=== PATIENT | female | born 1975 | race Caucasian/White ===

== ENCOUNTER 2018-04-10 11:02 | Emergency (ER) | payer OTHER ==
[2018-04-10] MEDS ORDERED: DICYCLOMINE HCL 10 MG CAP ONE (11:39)
[2018-04-10] MEDS ORDERED: ONDANSETRON 4 MG/2 ML VIAL ONE (11:40)
[2018-04-10] MEDS ORDERED: MORPHINE 4 MG/ML SYR ONE (11:40)
[2018-04-10] MEDS ORDERED: NA CHLORIDE 0.9% 1,000 ML ONE (11:41)
[2018-04-10 12:19] LABS: Urine Blood 2+ (NEG); Urine Glucose NEGATIVE (NEG); Urine Protein 1+ (NEG); Urine Specific Gravity 1.025 (1.005-1.030); Urine pH 5.5 (5.0-7.0)
[2018-04-10 12:30] LABS: Absolute Lymphocytes (CBC) 0.4 K/uL (0.7-4.9); Absolute Monocytes 1.3 K/uL (0.1-1.3); Absolute Neutrophil 11.1 K/uL (1.8-8.0); Basophils % 0.2 % (0-1.3); Eosinophils % 1.9 % (0-4.4); Hematocrit 43.5 % (36.0-45.0); Lymphocytes % 3.1 % (15.3-44.8); MCH 30.7 pg (27.0-35.0); MCV 90.3 fL (80-100); MPV 10.2 fL (7.6-11.3); RBC Red Blood Cell Count 4.82 M/uL (3.86-4.86)
[2018-04-10 12:31] LABS: ALT/SGPT 203 U/L (12-78); AST/SGOT 189 U/L (15-37); Albumin 3.8 g/dL (3.4-5.0); Alkaline Phosphatase 83 U/L (45-117); BUN Blood Urea Nitrogen 10 mg/dL (7-18); Bicarbonate 24 mmol/L (21-32); Bilirubin Direct 0.2 mg/dL (0-0.2); Bilirubin Total 0.5 mg/dL (0.2-1.0); Glucose Level 88 mg/dL (74-106); Lipase 92 U/L (73-393); Potassium 4.6 mmol/L (3.5-5.1); Sodium Level 139 mmol/L (136-145)
[2018-04-10 13:06] LABS: Platelet Estimate ADEQ; Urine White Blood Cell Casts OK
[2018-04-10 13:07] LABS: Blood Morphology Comment NOT SEEN (NOT SEEN)
--- NOTE | 2018-04-10 13:19 | RAD REPORT ---
EXAM DESCRIPTION: CT - Abdomen Pelvis W Contrast - 04/10/2018 12:51 pm CLINICAL HISTORY: Abdominal pain, nausea and vomiting COMPARISON: None. TECHNIQUE: Biphasic, helical CT imaging of the abdomen and pelvis was performed following 100 ml non -ionic IV contrast. Oral contrast was given. All CT scans are performed using dose optimization technique as appropriate and may include automated exposure control or mA/KV adjustment according to patient size. FINDINGS: No suspicious findings in the lung bases. The liver, spleen, and pancreas show no suspicious findings. Gallbladder and biliary tree are also wi thout suspicious finding. Symmetric renal function is seen with no hydronephrosis or suspicious renal mass. No urinary bladder abnormality seen. Retroflexed uterus in both ovaries are unremarkable. No dilated bowel loops. No bowel wall thickening. Fluid-filled nondilated distal small bowel loops ar e present and there is fluid in the right-side of the colon. No appendicitis findings. No free air, free fluid or inflammatory stranding. No hernia, mass or bulky lymphadenopathy. No adrenal abnormali ty. No suspicious bony findings. IMPRESSION: No obstruction, free air or surgically emergent finding. Distal small bowel and right side colon findings could indicate a nonspecific enteritis.
[2018-04-10] MEDS ORDERED: KETOROLAC 30 MG/ML INJ ONE (14:25)
--- NOTE | 2018-04-10 14:55 | EDPHYS ---
Physician Documentation [facility] Name: Rosamaria Castillo Age: 42 yrs Sex: Female : 1975 Arrival Date: 04/10/2018 Time: 11:06 Bed 15 Private MD: Minor Multani B ED Physician Yaw Lopez HPI: 04/10 11:30 This 42 yrs old Female presents to ER via Ambulatory with complaints of jmm Diarrhea, Abdominal Cramping. 11:30 The patient presents to the emergency department with nausea, diarrhea, abdominal pain. jmm Onset: The symptoms/episode began/occurred acutely, 2 day(s) ago. Possible causes: sick contacts, by family, daughter. The symptoms are aggravated by food , The symptoms are alleviated by nothing. Associated signs and symptoms: Pertinent positives: abdominal pain, diarrhea, fever. This is a 42 year old female with a history of bechects that presents to the ED with lower abdominal pain and diarrhea beginning this past . Patient states her daughter has had similar symptoms. Stool is described as watery. Patient has had 8 episodes of diarrhea today. Denies vomiting. Patient denies recent abx use, denies recent travel. Patient complains of body aches. . 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 aj Historical: - Allergies: 11:14 No Known Allergies; aj - Home Meds: 11:14 Adderall XR 20 mg Oral cp24 1 cap BID [Active]; Enbrel 20MG 1 tab three times a day aj [Active]; Flonase 50 mcg/actuation Nasal spsn 1 spray 2 times per day [Active]; Lamictal 200 mg Oral tab 1 tab 2 times per day [Active]; Plaquenil 200 mg Oral tab 1 tab 2 times per day [Active]; Seasonique 0.15 mg-30 mcg (84)/10 mcg (7) Oral 3MPk 1 tab once daily [Active]; Clonidine Oral [Active]; - PMHx: 11:14 Bechects; narcolepsy; aj - PSHx: 11:14 Endometriosis; Knee surgery; Ankle; aj - Immunization history:: Adult Immunizations up to date. - Social history:: Smoking status: Patient/guardian denies using tobacco. - Ebola Screening: : Patient negative for fever greater than or equal to 101.5 degrees Fahrenheit, and additional compatible Ebola Virus Disease symptoms Patient denies exposure to infectious person Patient denies travel to an Ebola-affected area in the 21 days before illness onset No symptoms or risks identified at this time. ROS: 11:30 Cardiovascular: Negative for chest pain, palpitations, and edema, Respiratory: Negative jmm for shortness of breath, cough, wheezing, and pleuritic chest pain. 11:30 Back: Negative for injury and pain, MS/Extremity: Negative for injury and deformity, Skin: Negative for injury, rash, and discoloration. 11:30 Constitutional: Positive for body aches. 11:30 Abdomen/GI: Positive for abdominal pain, nausea, diarrhea. 11:30 Neuro: Positive for 11:30 All other systems are negative. Exam: 11:30 Head/Face: atraumatic. Chest/axilla: Normal chest wall appearance and motion. jmm Cardiovascular: Regular rate and rhythm. No edema appreciated Respiratory: Normal respirations, no respiratory distress appreciated 11:30 Constitutional: The patient appears alert, awake, anxious, uncomfortable. 11:30 Abdomen/GI: Inspection: abdomen appears normal, Bowel sounds: normal, Palpation: soft, mild abdominal tenderness, in the right lower quadrant and left lower quadrant. 11:30 Back: ROM is normal. 11:30 Musculoskeletal/extremity: ROM: intact in all extremities. 11:30 Skin: Appearance: Color: normal in color. 11:30 Neuro: Orientation: is normal, Mentation: is normal, Memory: is normal, Gait: is steady. 11:30 Psych: Behavior/mood is pleasant, cooperative. Vital Signs: 11:14 BP 112 / 53; Pulse 102; Resp 19; Temp 98.4; Pulse Ox 100% on R/A; Weight 72.57 kg; aj Height 5 ft. 5 in. (165.10 cm); 11:45 BP 128 / 80; Pulse 99; Resp 16 S; Pulse Ox 98% on R/A; Pain 10/10; jl7 12:30 BP 118 / 77; Pulse 93; Resp 16 S; Pulse Ox 98% on R/A; jl7 13:15 BP 116 / 74; Pulse 89; Resp 16 S; Pulse Ox 98% on R/A; jl7 14:26 BP 113 / 75; Pulse 87; Resp 16 S; Pulse Ox 99% on R/A; jl7 11:14 Body Mass Index 26.63 (72.57 kg, 165.10 cm) aj MDM: 11:28 Patient medically screened. [facility] 14:53 Data reviewed: vital signs, nurses notes. Counseling: I had a detailed discussion with savita the patient and/or guardian regarding: the historical points, exam findings, and any diagnostic results supporting the discharge/admit diagnosis, radiology results, the need for outpatient follow up, to return to the emergency department if symptoms worsen or persist or if there are any questions or concerns that arise at home. Response to treatment: the patient's symptoms have markedly improved after treatment. ED course: Patient is alert and non toxic in appearance in the ED on discharge. Patient is able to tolerate PO. Patient given strict return precautions. Patient understood and agrees with the plan of care. . 04/10 11:29 Order name: Basic Metabolic Panel; Complete Time: 12:34 [facility] 04/10 11:29 Order name: CBC with Diff; Complete Time: 13:09 [facility] 04/10 11:29 Order name: Creatinine for Radiology; Complete Time: 12:34 [facility] 04/10 11:29 Order name: Hepatic Function; Complete Time: 12:34 [facility] 04/10 11:29 Order name: Lipase; Complete Time: 12:34 [facility] 04/10 12:05 Order name: Urine Dipstick--Ancillary (enter results); Complete Time: 12:34 04/10 11:29 Order name: CT Abd/Pelvis - W/Contrast; Complete Time: 13:32 [facility] 04/10 12:05 Order name: Urine --Ancillary (enter results); Complete Time: 12:34 04/10 12:37 Order name: CBC Smear Scan; Complete Time: 13:09 [facility] 04/10 11:29 Order name: IV Saline Lock; Complete Time: 12:17 [facility] 04/10 11:29 Order name: Labs collected and sent; Complete Time: 12:17 [facility] 04/10 14:07 Order name: PO challenge; Complete Time: 14:25 [facility] Administered Medications: 12:00 Drug: morphine 4 mg Route: IVP; Site: right antecubital; jl7 13:00 Follow up: Response: No adverse reaction; Pain is decreased [facility] 12:01 Drug: Zofran 4 mg Route: IVP; Site: right antecubital; jl7 13:00 Follow up: Response: No adverse reaction; Nausea is decreased jl7 12:03 Drug: NS 0.9% 1000 ml Route: IV; Rate: 1 bolus; Site: right antecubital; jl7 13:20 Follow up: IV Status: Completed infusion jl7 12:17 Drug: Bentyl 20 mg Route: PO; jl7 13:00 Follow up: Response: No adverse reaction; Pain is decreased jl7 14:24 Drug: Ketorolac 30 mg Route: IVP; Site: right antecubital; jl7 Disposition: 17:34 Co-signature as Attending Physician, Yaw Lopez MD. Disposition: 04/10/18 14:54 Discharged to Home. Impression: Other abdominal pain, Diarrhea, unspecified. - Condition is Stable. - Discharge Instructions: Abdominal Pain, Adult, Food Choices to Help Relieve Diarrhea, Adult. - Prescriptions for Zofran ODT 4 mg Oral tablet,disintegrating - place 1 tablet by TRANSLINGUAL route every 4-6 hours; 20 tablet. Bentyl 20 mg Oral Tablet - take 1 tablet by ORAL route every 6 hours As needed; 20 tablet. Tylenol- Codeine #3 300-30 mg Oral Tablet - take 1 tablet by ORAL route every 6 hours As needed; 12 tablet. - Medication Reconciliation Form, Thank You Letter, Antibiotic Education, Prescription Opioid Use form. - Follow up: Minor Multani MD; When: 2 - 3 days; Reason: Recheck today's complaints, Continuance of care, Re-evaluation by your physician. - Notes: You liver enzymes are elevated, please follow up with Gastroenterology for further evaluation. Please return to the Emergency Department if you are unable to tolerate fluids by mouth or if you develop increased pain. Signatures: Dispatcher [employer] EDMS Quiana Sterling RN RN aj Mickail, Joel, PA PA jmm Leal, Jahala, RN RN jl7 Starr, Gregory, MD MD Corrections: (The following items were deleted from the chart) 15:17 14:54 04/10/2018 14:54 Discharged to Home. Impression: Other abdominal pain; Diarrhea, jl7 unspecified. Condition is Stable. Forms are Medication Reconciliation Form, Thank You Letter, Antibiotic Education, Prescription Opioid Use. Follow up: Minor Multani; When: 2 - 3 days; Reason: Recheck today's complaints, Continuance of care, Re-evaluation by your physician. savita
--- NOTE | 2018-04-10 14:55 | ER ---
Nurse's Notes [facility] Name: Rosamaria Castillo Age: 42 yrs Sex: Female : 1975 Arrival Date: 04/10/2018 Time: 11:06 Bed 15 Private MD: Minor Multani B Diagnosis: Other abdominal pain;Diarrhea, unspecified Presentation: 04/10 11:11 Presenting complaint: Patient states: N/V/D since night. Transition of care: aj patient was not received from another setting of care. Onset of symptoms was April 06, 2018. Risk Assessment: Do you want to hurt yourself or someone else? Patient reports no desire to harm self or others. Initial Sepsis Screen: Does the patient meet any 2 criteria? No. Patient's initial sepsis screen is negative. Does the patient have a suspected source of infection? No. Patient's initial sepsis screen is negative. Care prior to arrival: None. 11:11 Method Of Arrival: Ambulatory 11:11 Acuity: TRAV 3 Triage Assessment: 11:14 General: Appears in no apparent distress. uncomfortable, Behavior is calm, cooperative, aj appropriate for age. Pain: Denies pain. Neuro: Level of Consciousness is awake, alert, obeys commands, Oriented to person, place, time, situation, Appropriate for age. Respiratory: Airway is patent Trachea midline Respiratory effort is even, unlabored, Respiratory pattern is regular, symmetrical. GI: Abdomen is flat, Reports lower abdominal pain, upper abdominal pain, diarrhea, nausea, vomiting. Derm: Skin is intact, is healthy with good turgor, Skin is pink, warm \\T\\ dry. normal. 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 Historical: - Allergies: 11:14 No Known Allergies; aj - Home Meds: 11:14 Adderall XR 20 mg Oral cp24 1 cap BID [Active]; Enbrel 20MG 1 tab three times a day aj [Active]; Flonase 50 mcg/actuation Nasal spsn 1 spray 2 times per day [Active]; Lamictal 200 mg Oral tab 1 tab 2 times per day [Active]; Plaquenil 200 mg Oral tab 1 tab 2 times per day [Active]; Seasonique 0.15 mg-30 mcg (84)/10 mcg (7) Oral 3MPk 1 tab once daily [Active]; Clonidine Oral [Active]; - PMHx: 11:14 Bechects; narcolepsy; aj - PSHx: 11:14 Endometriosis; Knee surgery; Ankle; aj - Immunization history:: Adult Immunizations up to date. - Social history:: Smoking status: Patient/guardian denies using tobacco. - Ebola Screening: : Patient negative for fever greater than or equal to 101.5 degrees Fahrenheit, and additional compatible Ebola Virus Disease symptoms Patient denies exposure to infectious person Patient denies travel to an Ebola-affected area in the 21 days before illness onset No symptoms or risks identified at this time. Screenin:00 Abuse screen: Denies threats or abuse. Denies injuries from another. Nutritional jl7 screening: No deficits noted. Tuberculosis screening: No symptoms or risk factors identified. Fall Risk IV access (20 points). Assessment: 11:45 General: Appears in no apparent distress. uncomfortable, Behavior is calm, cooperative. jl7 Pain: Complains of pain in right upper quadrant, left upper quadrant, right lower quadrant and left lower quadrant Pain does not radiate. Pain currently is 10 out of 10 on a pain scale. Quality of pain is described as aching, crampy, Is continuous. Neuro: Level of Consciousness is awake, alert, obeys commands, Oriented to person, place, time, situation. Cardiovascular: Patient's skin is warm and dry. Respiratory: Airway is patent Respiratory effort is even, unlabored, Respiratory pattern is regular, symmetrical. GI: Abdomen is flat, non-distended, Stools are reported to be diarrhea. : No signs and/or symptoms were reported regarding the genitourinary system. Denies burning with urination. Derm: Skin is pink, warm \\T\\ dry. Musculoskeletal: No signs and/or symptoms reported regarding the musculoskeletal system. 12:45 Reassessment: Patient and/or family updated on plan of care and expected duration. Pain jl7 level reassessed. Patient is alert, oriented x 3, equal unlabored respirations, skin warm/dry/pink. Patient states symptoms have improved. 13:45 Reassessment: Patient appears in no apparent distress at this time. No changes from jl7 previously documented assessment. Patient and/or family updated on plan of care and expected duration. Pain level reassessed. Patient is alert, oriented x 3, equal unlabored respirations, skin warm/dry/pink. 14:20 Reassessment: pt reports pain in the neck, states "I think I pulled it while stretching jl7 yesterday." Provider notified, see MAR for orders. 14:52 Reassessment: Pt drank grape juice, water and sprite. Denies discomfort at this time, jl7 provider notified. Vital Signs: 11:14 BP 112 / 53; Pulse 102; Resp 19; Temp 98.4; Pulse Ox 100% on R/A; Weight 72.57 kg; aj Height 5 ft. 5 in. (165.10 cm); 11:45 BP 128 / 80; Pulse 99; Resp 16 S; Pulse Ox 98% on R/A; Pain 10/10; jl7 12:30 BP 118 / 77; Pulse 93; Resp 16 S; Pulse Ox 98% on R/A; jl7 13:15 BP 116 / 74; Pulse 89; Resp 16 S; Pulse Ox 98% on R/A; jl7 14:26 BP 113 / 75; Pulse 87; Resp 16 S; Pulse Ox 99% on R/A; jl7 11:14 Body Mass Index 26.63 (72.57 kg, 165.10 cm) ED Course: 11:06 Patient arrived in ED. mr 11:07 Minor Multani MD is Private Physician. mr 11:12 Triage completed. aj 11:14 Arm band placed on right wrist. Patient placed in an exam room. aj 11:15 Srinivas Diehl PA is PHCP. m 11:15 Yaw Lopez MD is Attending Physician. [facility] 11:29 Malika Cook, LLUVIA is Primary Nurse. jl7 12:03 Radiology exam delayed due to lab results not completed at this time. (BUN/Creatinine). kw1 12:27 Urine collected: clean catch specimen, cloudy. mh5 12:28 Patient has correct armband on for positive identification. Bed in low position. Call 5 light in reach. Side rails up X 1. Warm blanket given. Pulse ox on. NIBP on. 12:30 Missed attempt(s): 22 gauge in left antecubital area. jl7 12:50 CT Abd/Pelvis - W/Contrast In Process Unspecified. EDMS 12:51 Inserted saline lock: 22 gauge in right antecubital area, using aseptic technique. la1 Blood collected. 13:04 CT completed. Patient tolerated procedure well. Patient moved back from CT. vr 14:54 Minor Multani MD is Referral Physician. [facility] 15:17 No provider procedures requiring assistance completed. IV discontinued, intact, jl7 bleeding controlled, No redness/swelling at site. Pressure dressing applied. Administered Medications: 12:00 Drug: morphine 4 mg Route: IVP; Site: right antecubital; jl7 13:00 Follow up: Response: No adverse reaction; Pain is decreased jl7 12:01 Drug: Zofran 4 mg Route: IVP; Site: right antecubital; jl7 13:00 Follow up: Response: No adverse reaction; Nausea is decreased jl7 12:03 Drug: NS 0.9% 1000 ml Route: IV; Rate: 1 bolus; Site: right antecubital; jl7 13:20 Follow up: IV Status: Completed infusion jl7 12:17 Drug: Bentyl 20 mg Route: PO; jl7 13:00 Follow up: Response: No adverse reaction; Pain is decreased jl7 14:24 Drug: Ketorolac 30 mg Route: IVP; Site: right antecubital; jl7 Outcome: 14:54 Discharge ordered by MD. [facility] 15:17 Discharged to home ambulatory, with family. [facility] 15:17 Condition: stable 15:17 Discharge instructions given to patient, family, Instructed on discharge instructions, follow up and referral plans. medication usage, Demonstrated understanding of instructions, follow-up care, medications, Prescriptions given X 3. 15:17 Patient left the ED. jl7 Signatures: Dispatcher [employer] EDMS Quiana Sterling RN RN aj Mickail, Joel, PA PA jmm Rivera, Maria mr Moore Rancho Fabian RN RN la1 Martinez, Maria mh5 Leal, Jahala, RN RN jl7 Wilhelm, Kimberly kw1
== END 2018-04-10 15:17 | disposition home or self-care (01) ==
LOC: ER 11:02
DX: R19.7 Diarrhea, unspecified (principal)
CPT/HCPCS: 36415; 74177; 80048; 80076; 81003; 81025; 83690; 85025; 96361; 96374; 96375; 99284; J2405; J7030; Q9967

== ENCOUNTER 2019-07-01 14:33 | Emergency (ER) | payer OTHER ==
--- OUTSIDE RECORDS SUMMARY | 2019-07-01 14:35 | XMS REPORT ---
:1975 Author Organization [facility] Address [address] [place] [address] Care Team Providers Name Role Phone Unavailable Unavailable Unavailable Payers Payer Name Policy Type Policy Number Effective Date Expiration Date Problems This patient has no known problems. Allergies, Adverse Reactions, Alerts Allergy Allergy Status Severity Reaction(s) Onset Inactive Treating Comments Name Type Date Date Clinician No Known DA Active U 2016-08 Allergies 28 00:00:0 0 Medications This patient has no known medications. Results Test Description Test Time Test Comments Text Results Atomic Results Result Comments - US PELVIS COMPLETE 2019-03-22 16:28:00 Patient Name: AUDRA ORDONEZ Unit No: [id number] EXAMS: CPT CODE: [id number] US PELVIS COMPLETE 24721 CLINICAL HISTORY: Dysfunctional uterine bleeding. Real-time ultrasound examination of the pelvis was performed using transabdominal and endovaginal approach. The uterus measures 8.1 x 3.9 x 4.7 cm in greatest dimensions with endometrium measuring 8 mm in AP dimension. There is no evidence of uterine fibroid or other significant uterine abnormality. The right ovary measures 24 x 22 x 28 mm and appears normal. The left ovary measures 28 x 16 x 22 mm and has normal sonographic appearance. Blood flow is identified in both ovaries. No extraovarian mass is noted. There is no significant free fluid in the pelvis. IMPRESSION: Unremarkable pelvic sonogram. at 8589 Reported and signed by: Bhaskar Richard MD CC: Mahesh Choudhury III, MD Technologist: Santi Stanton RDMS Probe: Trnscrbd D/ (1628) bobARUNA Orig Print D/T: S: 03/22/2019 (5501) [facility] NAME: AUDRA ORDONEZ Radiology Department PHYS: Mahesh Harden III, MD [address] : 1975 AGE: 43 SEX: F [place], [place] [address] LOC: [facility] PHONE #: [phone] EXAM DATE: 03/22/2019 STATUS: REG CLI FAX #: [phone] RAD NO: [id number] Page 1 Signed Report Patient Name: AUDRA ORDONEZ Unit No: [id number] EXAMS: CPT CODE: [id number] US PELVIS COMPLETE 71049 <Continued> [facility] NAME: AUDRA ORDONEZ Radiology Department PHYS: Mahesh Harden III, MD [address] : 1975 AGE: 43 SEX: F [place], [place] [address] LOC: [facility] PHONE #: [phone] EXAM DATE: 03/22/2019 STATUS: REG CLI FAX #: [phone] RAD NO: [id number] Page 2 Signed Report - US TRANSVAGINAL W/PELVIS 2019-03-22 16:28:00 Patient Name: AUDRA ORDONEZ Unit No: [id number] EXAMS: CPT CODE: [id number] US TRANSVAGINAL W/PELVIS 34881 CLINICAL HISTORY: Dysfunctional uterine bleeding. Real-time ultrasound examination of the pelvis was performed using transabdominal and endovaginal approach. The uterus measures 8.1 x 3.9 x 4.7 cm in greatest dimensions with endometrium measuring 8 mm in AP dimension. There is no evidence of uterine fibroid or other significant uterine abnormality. The right ovary measures 24 x 22 x 28 mm and appears normal. The left ovary measures 28 x 16 x 22 mm and has normal sonographic appearance. Blood flow is identified in both ovaries. No extraovarian mass is noted. There is no significant free fluid in the pelvis. IMPRESSION: Unremarkable pelvic sonogram. at 1628 Reported and signed by: Bhaskar Richard MD CC: Mahesh Choudhury III, MD Technologist: Santi Stanton, SORAYAMI Probe: [id number] Trnscrbd D/ (9718) [place] Orig Print D/T: S: 03/22/2019 (2081) [facility] NAME: AUDRA ORDONEZ Radiology Department PHYS: Mahesh Harden III, MD [address] : 1975 AGE: 43 SEX: F [place] [address] LOC: [facility] PHONE #: [phone] EXAM DATE: 03/22/2019 STATUS: REG CLI FAX #: [phone] RAD NO: [id number] Page 1 Signed Report Patient Name: AUDRA ORDONEZ Unit No: [id number] EXAMS: CPT CODE: [id number] US TRANSVAGINAL W/PELVIS 20320 <Continued> [facility] NAME: AUDRA ORDONEZ Radiology Department PHYS: Mahesh Harden III, MD [address] : 1975 AGE: 43 SEX: F [place] [address] LOC: [facility] PHONE #: [phone] EXAM DATE: 03/22/2019 STATUS: REG CLI FAX #: [phone] RAD NO: [id number] Page 2 Signed Report
[2019-07-01] MEDS ORDERED: NA CHLORIDE 0.9% 2,000 ML ONE (15:17)
[2019-07-01 15:38] LABS: Absolute Lymphocytes (CBC) 0.6 K/uL (0.7-4.9); Basophils % 0.2 % (0-1.3); Hematocrit 40.4 % (36.0-45.0); Lymphocytes % 4.2 % (15.3-44.8); MPV 9.3 fL (7.6-11.3); RBC Red Blood Cell Count 4.44 M/uL (3.86-4.86)
[2019-07-01] MEDS ORDERED: CEFTRIAXONE/SWI 1gm 1 GM/10 ML SYR ONE (16:12)
[2019-07-01 16:14] LABS: Urine Bacteria <20 /HPF (<20); Urine Culture Reflex Order NOT NEEDED; Urine Mucus 2+ /HPF (NONE SEEN)
--- NOTE | 2019-07-01 16:14 | RAD REPORT ---
EXAM DESCRIPTION: Dieudonne Single View07/01/2019 3:16 pm CLINICAL HISTORY: fever COMPARISON: 2007 FINDINGS: The lungs appear clear of acute infiltrate. The heart is normal size. 3.8 centimeter calcification proximal right humerus IMPRESSION: 3.8 centimeter calcification proximal right humerus may represent an enchondroma or inf arct. Followup x-ray right humerus recommended in 2 months to assess stability
[2019-07-01 16:15] LABS: Urine Blood 2+ (NEG); Urine Glucose NEGATIVE (NEG); Urine Protein 2+ (NEG); Urine pH 5.5 (5.0-7.0)
[2019-07-01 16:16] LABS: ALT/SGPT 27 U/L (12-78); AST/SGOT 16 U/L (15-37); Albumin 3.5 g/dL (3.4-5.0); Alkaline Phosphatase 98 U/L (45-117); BUN Blood Urea Nitrogen 7 mg/dL (7-18); Bicarbonate 25 mmol/L (21-32); Bilirubin Direct 0.2 mg/dL (0-0.2); Bilirubin Total 0.7 mg/dL (0.2-1.0); CKMB Creatine Kinase MB < 1.0 ng/mL (0.3-3.6); Creatine Phosphokinase 50 U/L (26-192); Glucose Level 102 mg/dL (74-106); Potassium 3.7 mmol/L (3.5-5.1); Protein, Total 7.3 g/dL (6.4-8.2); Sodium Level 135 mmol/L (136-145)
--- NOTE | 2019-07-01 16:20 | ER ---
Nurse's Notes [facility] Name: Rosamaria Castillo Age: 44 yrs Sex: Female : 1975 Arrival Date: 07/01/2019 Time: 14:35 Bed 16 Private MD: Diagnosis: Fever presenting with conditions classified elsewhere;Volume depletion Presentation: 07/01 14:35 Transition of care: patient was not received from another setting of care. sv 14:35 Method Of Arrival: Ambulatory sv 14:36 Presenting complaint: Patient states: fever Tmax 103.7, body aches, headache started sv Wed night, went to see her PCP and was told she has a UTI and flu negative. Onset of symptoms was June 29, 2019. Care prior to arrival: Medication(s) given: Tylenol, taken 2 hrs ago. 14:36 Acuity: TRAV 2 sv 14:39 Initial Sepsis Screen: Does the patient meet any 2 criteria? HR > 90 bpm. No. Patient's sv initial sepsis screen is negative. Does the patient have a suspected source of infection? Yes: Dysuria/Frequency/Urgency/UTI. 17:28 Risk Assessment: Do you want to hurt yourself or someone else? Patient reports no tr5 desire to harm self or others. Historical: - Allergies: 14:36 No Known Allergies; sv - PMHx: 14:36 Bechects; narcolepsy; sv - PSHx: 14:36 Endometriosis; Knee surgery; Ankle; sv - Immunization history:: Adult Immunizations up to date. - Social history:: Smoking status: Patient/guardian denies using tobacco. - Ebola Screening: : No symptoms or risks identified at this time. Screenin:45 Abuse screen: Denies threats or abuse. Denies injuries from another. Nutritional ca1 screening: No deficits noted. Tuberculosis screening: No symptoms or risk factors identified. Fall Risk IV access (20 points). Assessment: 14:45 General: Appears in no apparent distress. comfortable, Behavior is calm, cooperative, ca1 appropriate for age. General: Reports fever for 2-3 days. Pain: Complains of pain in suprapubic area Pain currently is 5 out of 10 on a pain scale. Pain began 2-3 days ago. Neuro: Level of Consciousness is awake, alert, obeys commands, Oriented to person, place, time, situation, Appropriate for age. Cardiovascular: Heart tones S1 S2 present Capillary refill < 3 seconds Patient's skin is warm and dry. Respiratory: Airway is patent Respiratory effort is even, unlabored, Respiratory pattern is regular, symmetrical, Breath sounds are clear bilaterally. GI: Abdomen is flat, non-distended, Bowel sounds present X 4 quads. Abd is soft and non tender X 4 quads. : Reports urinary frequency. EENT: No deficits noted. No signs and/or symptoms were reported regarding the EENT system. Derm: Skin is intact, is healthy with good turgor, Skin is pink, warm \T\ dry. Musculoskeletal: Circulation, motion, and sensation intact. Capillary refill < 3 seconds, Range of motion: intact in all extremities. 15:36 Reassessment: Patient appears in no apparent distress at this time. Patient is alert, ca1 oriented x 3, equal unlabored respirations, skin warm/dry/pink. 16:41 Reassessment: Patient appears in no apparent distress at this time. Patient is alert, ca1 oriented x 3, equal unlabored respirations, skin warm/dry/pink. IVF still infusing. For discharge once completed. Vital Signs: 14:38 BP 112 / 74; Pulse 112; Resp 20; Temp 100.5(O); Pulse Ox 98% ; Weight 63.5 kg; Height 5 sv ft. 5 in. (165.10 cm); 15:36 BP 108 / 75; Pulse 94; Resp 16; Temp 99.2(O); Pulse Ox 100% on R/A; mh5 16:32 BP 102 / 71; Pulse 86; Resp 17; Temp 98.3; Pulse Ox 100% on R/A; ca1 14:38 Body Mass Index 23.30 (63.50 kg, 165.10 cm) sv ED Course: 14:35 Patient arrived in ED. sv 14:35 Arm band placed on. sv 14:37 Triage completed. sv 14:39 Din[facility]sor[facility]-C [facility]. snw 14:40 Maynor Henao MD is Attending Physician. snw 14:45 Warm blanket given. ca1 15:05 Patient has correct armband on for positive identification. Bed in low position. Call [facility] light in reach. Adult w/ patient. Pulse ox on. NIBP on. 15:05 Urine Culture Sent. mh5 15:05 Urine Microscopic Only Sent. 5 15:05 Flu Sent. 5 15:06 Urine collected: clean catch specimen, cloudy, Flu and/or RSV swab sent to lab. 5 15:15 Chest Single View XRAY In Process Unspecified. EDMS 15:15 No provider procedures requiring assistance completed. Inserted saline lock: 22 gauge ca1 in left antecubital area, using aseptic technique. Blood collected. 15:15 Initial lab(s) drawn, by me, sent to lab. First set of blood cultures drawn. ca1 15:45 Second set of blood cultures drawn by me. ca1 15:48 Zenia Aldana, RN is Primary Nurse. ca1 17:28 IV discontinued. tr5 Administered Medications: 15:15 Drug: NS 0.9% (30 ml/kg) 30 ml/kg Route: IV; Rate: bolus; Site: left antecubital; ca1 16:10 Drug: Rocephin 1 grams Route: IV; Rate: calculated rate; Site: left antecubital; ca1 Outcome: 16:19 Discharge ordered by MD. snw 17:27 Discharged to home via wheelchair. tr5 17:27 Condition: stable 17:27 Discharge instructions given to patient, family, Instructed on discharge instructions, follow up and referral plans. medication usage, Demonstrated understanding of instructions, follow-up care, medications. 17:37 Patient left the ED. tr5 Signatures: Dispatcher [employer] Nicolasa Randle RN RN Dinora Osorio, [employer] CHIEF-Keara Valero [facility] Zenia Aldana RN RN [facility] Mateus Fragoso RN RN tr5 Corrections: (The following items were deleted from the chart) 14:39 14:36 Care prior to arrival: None. sv sv 14:39 14:38 Pulse 112bpm; Resp 20bpm; Pulse Ox 98%; Temp 100.5F Oral; 63.5 kg; Height 5 ft. 5 sv in.; BMI: 23.3; sv 14:41 14:36 Acuity: TRAV 3 sv sv 16:45 16:41 Reassessment: IVF still infusing. For discharge once completed [facility] ca1
--- NOTE | 2019-07-01 16:21 | EDPHYS ---
Physician Documentation [facility] Name: Rosamaria Castillo Age: 44 yrs Sex: Female : 1975 Arrival Date: 07/01/2019 Time: 14:35 Bed 16 Private MD: ED Physician Maynor Henao HPI: 07/01 15:23 This 44 yrs old Female presents to ER via Ambulatory with complaints of snw Urinary Problem, Fever. 15:23 Onset: The symptoms/episode began/occurred suddenly, 2 day(s) ago, and became snw persistent. Associated signs and symptoms: Pertinent positives: abdominal pain, fever, sore throat. Modifying factors: The patient symptoms are alleviated by nothing. It is unknown whether or not the patient has had similar symptoms in the past. The patient has been recently seen by a physician: the patient's primary care provider, Dr. Multani with similar presenting complaints, dx with UTI, given Ceftin and Tamiflu. Pt voided prior to assessment and is very dark. Historical: - Allergies: 14:36 No Known Allergies; sv - PMHx: 14:36 Bechects; narcolepsy; sv - PSHx: 14:36 Endometriosis; Knee surgery; Ankle; sv - Immunization history:: Adult Immunizations up to date. - Social history:: Smoking status: Patient/guardian denies using tobacco. - Ebola Screening: : No symptoms or risks identified at this time. ROS: 15:22 Eyes: Negative for injury, pain, redness, and discharge. snw 15:22 Neck: Negative for injury, pain, and swelling, Cardiovascular: Negative for chest pain, palpitations, and edema, Respiratory: Negative for shortness of breath, cough, wheezing, and pleuritic chest pain. 15:22 Back: Negative for injury and pain, : Negative for injury, bleeding, discharge, and swelling, MS/Extremity: Negative for injury and deformity, Skin: Negative for injury, rash, and discoloration. 15:22 Constitutional: Positive for body aches, chills, fatigue, fever, malaise, poor PO intake. 15:22 ENT: Positive for sore throat. 15:22 Abdomen/GI: Positive for nausea, abdominal cramps. 15:22 Neuro: Positive for headache. Exam: 15:18 Head/Face: Normocephalic, atraumatic. Eyes: Pupils equal round and reactive to light, snw extra-ocular motions intact. Lids and lashes normal. Conjunctiva and sclera are non-icteric and not injected. Cornea within normal limits. Periorbital areas with no swelling, redness, or edema. 15:18 Neck: Trachea midline, no thyromegaly or masses palpated, and no cervical lymphadenopathy. Supple, full range of motion without nuchal rigidity, or vertebral point tenderness. No Meningismus. Chest/axilla: Normal chest wall appearance and motion. Nontender with no deformity. No lesions are appreciated. 15:18 Respiratory: Lungs have equal breath sounds bilaterally, clear to auscultation and percussion. No rales, rhonchi or wheezes noted. No increased work of breathing, no retractions or nasal flaring. 15:18 Back: No spinal tenderness. No costovertebral tenderness. Full range of motion. MS/ Extremity: Pulses equal, no cyanosis. Neurovascular intact. Full, normal range of motion. Neuro: Awake and alert, GCS 15, oriented to person, place, time, and situation. Cranial nerves II-XII grossly intact. Motor strength 5/5 in all extremities. Sensory grossly intact. Cerebellar exam normal. Normal gait. 15:18 Constitutional: The patient appears awake, anxious, diaphoretic, frail, uncomfortable. 15:18 ENT: TM's: are normal, Nose: is normal, Mouth: Oral mucosa: dry, Posterior pharynx: erythema, that is mild, Voice: is normal. 15:18 Cardiovascular: Rate: tachycardic, Rhythm: regular. 15:18 Abdomen/GI: Inspection: abdomen appears normal, Bowel sounds: normal, Palpation: mild abdominal tenderness, in the left lower quadrant. 15:18 Skin: Appearance: Color: pale, Temperature: warm, Moisture: diaphoretic. 15:18 Psych: Behavior/mood is anxious, Affect is animated. Vital Signs: 14:38 BP 112 / 74; Pulse 112; Resp 20; Temp 100.5(O); Pulse Ox 98% ; Weight 63.5 kg; Height 5 sv ft. 5 in. (165.10 cm); 15:36 BP 108 / 75; Pulse 94; Resp 16; Temp 99.2(O); Pulse Ox 100% on R/A; mh5 16:32 BP 102 / 71; Pulse 86; Resp 17; Temp 98.3; Pulse Ox 100% on R/A; ca1 14:38 Body Mass Index 23.30 (63.50 kg, 165.10 cm) sv MDM: 14:48 Patient medically screened. snw 16:24 Data reviewed: vital signs, nurses notes. Data interpreted: Pulse oximetry: on room air snw is 100 %. Interpretation: normal. Counseling: I had a detailed discussion with the patient and/or guardian regarding: the historical points, exam findings, and any diagnostic results supporting the discharge/admit diagnosis, lab results, the need for outpatient follow up, to return to the emergency department if symptoms worsen or persist or if there are any questions or concerns that arise at home. Special discussion: Based on the history and exam findings, there is no indication for further emergent testing or inpatient evaluation. I discussed with the patient/guardian the need to see the primary care provider for further evaluation of the symptoms. 07/01 14:40 Order name: Flu; Complete Time: 15:25 snw 07/01 14:40 Order name: Urine Culture snw 07/01 14:40 Order name: Urine Microscopic Only; Complete Time: 16:15 snw 07/01 15:02 Order name: Basic Metabolic Panel; Complete Time: 16:18 snw 07/01 15:02 Order name: Blood Culture Adult (2) snw 07/01 15:02 Order name: CBC with Diff; Complete Time: 15:46 snw 07/01 15:02 Order name: Ckmb; Complete Time: 16:18 snw 07/01 15:02 Order name: CPK; Complete Time: 16:18 snw 07/01 15:02 Order name: Lactate; Complete Time: 15:52 snw 07/01 15:02 Order name: LFT's; Complete Time: 16:18 snw 07/01 15:02 Order name: Chest Single View XRAY; Complete Time: 16:23 snw 07/01 15:06 Order name: Urine Dipstick--Ancillary (enter results); Complete Time: 16:15 eb 07/01 15:06 Order name: Urine --Ancillary (enter results); Complete Time: 16:15 eb 07/01 15:57 Order name: Glucose, Ancillary Testing; Complete Time: 15:59 EDMS 07/01 14:40 Order name: Urine Dipstick-Ancillary (obtain specimen); Complete Time: 15:05 snw 07/01 15:02 Order name: Accucheck; Complete Time: 15:49 snw 07/01 15:02 Order name: Cardiac monitoring; Complete Time: 15:48 snw 07/01 15:02 Order name: EKG - Nurse/Tech; Complete Time: 15:48 snw 07/01 15:02 Order name: IV Saline Lock - Large Bore; Complete Time: 15:49 snw 07/01 15:02 Order name: Labs collected and sent; Complete Time: 15:49 snw 07/01 15:02 Order name: O2 Per Protocol; Complete Time: 15:49 snw 07/01 15:02 Order name: O2 Sat Monitoring; Complete Time: 15:49 snw Administered Medications: 15:15 Drug: NS 0.9% (30 ml/kg) 30 ml/kg Route: IV; Rate: bolus; Site: left antecubital; ca1 16:10 Drug: Rocephin 1 grams Route: IV; Rate: calculated rate; Site: left antecubital; ca1 Disposition: 18:40 Co-signature as Attending Physician, Maynor Henao MD. rn Disposition: 07/01/19 16:19 Discharged to Home. Impression: Fever presenting with conditions classified elsewhere, Volume depletion. - Condition is Stable. - Discharge Instructions: Dehydration, Adult, Fever, Adult, Urinary Tract Infection, Adult, Rehydration, Adult. - Prescriptions for promethazine 25 mg Oral Tablet - take 1 tablet by ORAL route every 6 hours As needed; 20 tablet. - Work release form, Medication Reconciliation Form, Thank You Letter, Antibiotic Education, Prescription Opioid Use form. - Follow up: Emergency Department; When: As needed; Reason: Worsening of condition. Follow up: Private Physician; When: 2 - 3 days; Reason: Recheck today's complaints, Continuance of care, Re-evaluation by your physician. - Notes: please continue current medications Signatures: Dispatcher [employer] Nicolasa Randle, RN RN sv Dinora Osorio, METALLURGICAL INSPECTOR-C METALLURGICAL INSPECTOR-Csnw Maynor Henao MD MD rn Zenia Aldana RN RN ca1 Mateus Fragoso RN RN tr5 Corrections: (The following items were deleted from the chart) 17:37 16:19 07/01/2019 16:19 Discharged to Home. Impression: Fever presenting with conditions tr5 classified elsewhere; Volume depletion. Condition is Stable. Forms are Medication Reconciliation Form, Thank You Letter, Antibiotic Education, Prescription Opioid Use. Follow up: Emergency Department; When: As needed; Reason: Worsening of condition. Follow up: Private Physician; When: 2 - 3 days; Reason: Recheck today's complaints, Continuance of care, Re-evaluation by your physician. snw
[2019-07-01 21:10] VITALS: O2SAT 100
[2019-07-01 21:12] VITALS: BP 102/71; TEMP 98.3
--- NOTE | 2019-07-02 15:33 | EKG ---
Test Date: 2019-07-01 Test Time: 15:44:14 Professor Computer Science: SAEED MEASUREMENT RESULTS: Intervals: Rate: 91 MA: 114 QRSD: 86 QT: 374 QTc: 460 [place]: P: 37 MA: 114 QRS: 66 T: 30 INTERPRETIVE STATEMENTS: Normal sinus rhythm Normal ECG Compared to ECG 07/20/2008 11:31:51 Sinus tachycardia no longer present ST (T wave) deviation no longer present Electronically Signed On 07-02-19 15:31:05 MAINTENANCE GROUNDSKEEPER by Chad Nolan
== END 2019-07-01 17:37 | disposition home or self-care (01) ==
LOC: ER 14:33
DX: R50.9 Fever, unspecified (principal); E86.9 Volume depletion, unspecified
CPT/HCPCS: 93005; 87040 ×2; 85025; 87086; 80048; 36415; 82550; 81025; 82947; 80076; 83605; 82553; 87804 ×2; 71045; 96375; 96374; 99284; J0696; J7030; 81003; 81015; 87088

== ENCOUNTER 2019-07-02 14:14 | Observation (INO) | payer OTHER ==
--- OUTSIDE RECORDS SUMMARY | 2019-07-02 14:16 | XMS REPORT ---
:1975 Author Organization [facility] Address [address] [place] [address] Care Team Providers Name Role Phone Unavailable [...] 16:28:00 Patient Name: AUDRA ORDONEZ Unit No: [id number] EXAMS: CPT CODE: [id number] US PELVIS COMPLETE 47623 CLINICAL HISTORY: Dysfunctional uterine bleeding. Real-time ultrasound [...] the pelvis. IMPRESSION: Unremarkable pelvic sonogram. at 5913 Reported and signed by: Bhaskar Richard MD CC: Mahesh Choudhury III, MD Technologist: Santi Stanton RDMS Probe: Trnscrbd D/ (1628) bobARUNA Orig Print D/T: S: 03/22/2019 (3531) [facility] NAME: AUDRA ORDONEZ Radiology Department PHYS: Mahesh Harden III, MD [address] : 1975 AGE: 43 SEX: F [place], [place] [address] LOC: [facility] PHONE #: [phone] EXAM DATE: 03/22/2019 STATUS: REG CLI FAX #: [phone] RAD NO: [id number] Page 1 Signed Report Patient Name: AUDRA ORDONEZ Unit No: [id number] EXAMS: CPT CODE: [id number] US PELVIS COMPLETE 16545 <Continued> [facility] NAME: AUDRA ORDONEZ Radiology Department PHYS: Mahesh Harden III, MD [address] : 1975 AGE: 43 SEX: F [place], [place] [address] LOC: [facility] PHONE #: [phone] EXAM DATE: 03/22/2019 STATUS: REG CLI FAX #: [phone] RAD NO: [id number] Page 2 Signed Report - US TRANSVAGINAL W/PELVIS 2019-03-22 16:28:00 Patient Name: AUDRA ORDONEZ Unit No: [id number] EXAMS: CPT CODE: [id number] US TRANSVAGINAL W/PELVIS 99238 CLINICAL HISTORY: Dysfunctional uterine bleeding. Real-time ultrasound [...] Mahesh Choudhury III, MD Technologist: Santi Stanton, SORAYAOH Probe: [id number] Trnscrbd D/ (0178) [place] Orig Print D/T: S: 03/22/2019 (2172) [facility] NAME: AUDRA ORDONEZ Radiology Department PHYS: Mahesh Harden III, MD [address] : 1975 AGE: 43 SEX: F [place] [address] LOC: [facility] PHONE #: [phone] EXAM DATE: 03/22/2019 STATUS: REG CLI FAX #: [phone] RAD NO: [id number] Page 1 Signed Report Patient Name: AUDRA ORDONEZ Unit No: [id number] EXAMS: CPT CODE: [id number] US TRANSVAGINAL W/PELVIS 65375 <Continued> [facility] NAME: AUDRA ORDONEZ Radiology Department PHYS: Mahesh Harden III, MD [address] : 1975 AGE: 43 SEX: F [place] [address] LOC: [facility] PHONE #: [phone] EXAM DATE: 03/22/2019 STATUS: REG CLI FAX #: [phone] RAD NO: [id number] Page 2 Signed Report
[2019-07-02] MEDS ORDERED: NA CHLORIDE 0.9% 2,000 ML ONE (14:36)
[2019-07-02] MEDS ORDERED: ACETAMINOPHEN 500 MG TAB ONE (14:36)
[2019-07-02 15:06] LABS: Urine Blood 2+ (NEG); Urine Glucose NEGATIVE (NEG); Urine Protein 1+ (NEG)
[2019-07-02 15:09] LABS: Urine Bacteria <20 /HPF (<20); Urine Culture Reflex Order NOT NEEDED; Urine RBC <5 /HPF (NONE SEEN)
[2019-07-02 15:10] LABS: Absolute Lymphocytes (CBC) 0.9 K/uL (0.7-4.9); Basophils % 0.4 % (0-1.3); Hematocrit 40.3 % (36.0-45.0); Lymphocytes % 6.9 % (15.3-44.8); MPV 9.4 fL (7.6-11.3); RBC Red Blood Cell Count 4.42 M/uL (3.86-4.86)
[2019-07-02 15:10] LABS: Urine Yeast PRESENT (NONE SEEN)
[2019-07-02 15:23] LABS: Protime INR 1.14
[2019-07-02] MEDS ORDERED: MORPHINE 4 MG/ML SYR ONE (15:28)
[2019-07-02] MEDS ORDERED: ONDANSETRON 4 MG/2 ML VIAL ONE (15:28)
[2019-07-02 15:29] LABS: ALT/SGPT 43 U/L (12-78); AST/SGOT 30 U/L (15-37); Albumin 3.5 g/dL (3.4-5.0); Alkaline Phosphatase 158 U/L (45-117); BUN Blood Urea Nitrogen 7 mg/dL (7-18); Bicarbonate 25 mmol/L (21-32); Bilirubin Direct 0.3 mg/dL (0-0.2); Bilirubin Total 0.6 mg/dL (0.2-1.0); Glucose Level 94 mg/dL (74-106); Lipase 62 U/L (73-393); Potassium 3.6 mmol/L (3.5-5.1); Protein, Total 7.7 g/dL (6.4-8.2); Sodium Level 134 mmol/L (136-145)
--- NOTE | 2019-07-02 16:00 | ER ---
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 I aj1 just need to be admitted and get my antibiotics through the IV" Patient reports that she has been taking Ceftin for her UTI and she received Rocephin last night, but she is still having suprapubic pain and sweating. Patient also reports headache and bodyaches. Transition of care: patient was not received from another setting of care. Onset of symptoms was July 02, 2019. Risk Assessment: Do you want to hurt yourself or someone else? Patient reports no desire to harm self or others. Initial Sepsis Screen: Does the patient meet any 2 criteria? HR > 90 bpm. No. Patient's initial sepsis screen is negative. Does the patient have a suspected source of infection? Yes: Dysuria/Frequency/Urgency/UTI. Care prior to arrival: None. 14:18 Method Of Arrival: Ambulatory aj 14:18 Acuity: TRAV 3 aj1 Triage Assessment: 14:22 General: Appears in no apparent distress. uncomfortable, Behavior is calm, cooperative, aj1 appropriate for age. Pain: Pain currently is 9 out of 10 on a pain scale. Neuro: Level of Consciousness is awake, alert, obeys commands. Cardiovascular: Patient's skin is warm and dry. Respiratory: Airway is patent Respiratory effort is even, unlabored, Respiratory pattern is regular, symmetrical. 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: 14:22 LMP 06/2019 aj1 Historical: - Allergies: 14:22 No Known Allergies; aj1 - Home Meds: 14:22 Adderall XR 20 mg Oral cp24 1 cap BID [Active]; Clonidine Oral [Active]; diclofenac aj1 sodium 75 mg Oral TbEC 1 tab daily [Active]; Enbrel 20MG 1 tab three times a day [Active]; Flonase 50 mcg/actuation Nasal spsn 1 spray 2 times per day [Active]; Lamictal 200 mg Oral tab 1 tab 2 times per day [Active]; Plaquenil 200 mg Oral tab 1 tab 2 times per day [Active]; Seasonique 0.15 mg-30 mcg (84)/10 mcg (7) Oral 3MPk 1 tab once daily [Active]; Toprol XL 200 mg Oral Tb24 1 tab BID [Active]; - PMHx: 14:22 narcolepsy; 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 - Social history:: Smoking status: Patient/guardian denies using tobacco, Patient/guardian denies using alcohol, street drugs, The patient lives with family. - Ebola Screening: : Patient denies travel to an Ebola-affected area in the 21 days before illness onset. - Family history:: not pertinent. Screenin:28 Abuse screen: Denies threats or abuse. Nutritional screening: No deficits noted. tw2 Tuberculosis screening: No symptoms or risk factors identified. Fall Risk None identified. Assessment: 14:30 General: Appears uncomfortable, slender, well groomed, Behavior is cooperative, tw2 appropriate for age. Pain: Complains of pain in back. Neuro: Level of Consciousness is awake, alert, obeys commands, Oriented to person, place, time, situation. Cardiovascular: Heart tones S1 S2 Patient's skin is warm and dry. Respiratory: Airway is patent Respiratory effort is even, unlabored, Respiratory pattern is regular, symmetrical, Breath sounds are clear bilaterally. GI: Abdomen is flat, Bowel sounds present X 4 quads. : Reports burning with urination, pain in bilateral flank(s). EENT: No signs and/or symptoms were reported regarding the EENT system. Derm: No signs and/or symptoms reported regarding the dermatologic system. Musculoskeletal: Range of motion: intact in all extremities. 15:30 Reassessment: Patient appears in no apparent distress at this time. No changes from tw2 previously documented assessment. Patient and/or family updated on plan of care and expected duration. Pain level reassessed. Patient is alert, oriented x 3, equal unlabored respirations, skin warm/dry/pink. 16:30 Reassessment: Patient appears in no apparent distress at this time. No changes from tw2 previously documented assessment. Patient and/or family updated on plan of care and expected duration. Pain level reassessed. Patient is alert, oriented x 3, equal unlabored respirations, skin warm/dry/pink. 17:15 Reassessment: Patient appears in no apparent distress at this time. No changes from tw2 previously documented assessment. Patient and/or family updated on plan of care and expected duration. Pain level reassessed. Patient is alert, oriented x 3, equal unlabored respirations, skin warm/dry/pink. Vital Signs: 14:22 BP 112 / 85; Pulse 103; Resp 20; Temp 99.1; Pulse Ox 100% on R/A; Weight 65.32 kg (R); aj1 Height 5 ft. 5 in. (165.10 cm) (R); Pain 9/10; 15:14 BP 113 / 78; Pulse 86; Resp 19; Pulse Ox 100% on R/A; tw2 16:45 BP 120 / 76; Pulse 89; Resp 19; Pulse Ox 100% on R/A; tw2 14:22 Body Mass Index 23.96 (65.32 kg, 165.10 cm) aj1 ED Course: 14:17 Patient arrived in ED. mr 14:17 Minor Multani MD is Private Physician. mr 14:21 Triage completed. aj1 14:22 Arm band placed on Patient placed in an exam room. aj1 14:23 Giovanna Bhatt MD is Attending Physician. ma2 14:28 Bed in low position. Call light in reach. tw2 14:47 Urine collected: clean catch specimen, cloudy, amarjit colored, EKG done, by ED staff, jb1 reviewed by Giovanna Bhatt MD. 15:13 Marine Perez, LLUVIA is Primary Nurse. tw2 15:57 Lorena Hudson MD is Hospitalizing Provider. ma2 17:12 No provider procedures requiring assistance completed. Patient admitted, IV remains in hb place. Administered Medications: 14:41 Drug: Acetaminophen 1000 mg Route: PO; tw2 15:45 Follow up: Response: No adverse reaction; Temperature is decreased tw2 15:00 Drug: NS 0.9% (30 ml/kg) 30 ml/kg Route: IV; Rate: bolus; Site: left antecubital; tw2 16:30 Follow up: Response: No adverse reaction; IV Status: Completed infusion; IV Intake: 7 1958ml 15:28 Drug: Zofran 4 mg Route: IVP; Site: left antecubital; tw2 16:50 Follow up: Response: No adverse reaction 7 15:30 Drug: morphine 4 mg {Note: rass 0.} Route: IVP; Site: left antecubital; tw2 16:00 Follow up: Response: No adverse reaction; Pain is decreased jl7 16:45 Drug: Rocephin 1 grams Route: IV; Rate: calculated rate; Site: left antecubital; jl7 16:50 Follow up: Response: No adverse reaction; IV Status: Completed infusion 7 Intake: 16:30 IV: 1958ml; Total: 1959ml. Outcome: 15:59 Decision to Hospitalize by Provider. ma 17:12 Admitted to Med/surg accompanied by tech, via wheelchair, room 225, with chart. hb 17:12 Condition: stable 17:12 Instructed on the need for admit, Demonstrated understanding of instructions. 17:15 Patient left the ED. hb Signatures: Mahesh Al Angela RN RN aj Darcie Ward mr Dana Chan RN RN Marine Perez RN RN tw2 Malika Cook RN RN jl7 Giovanna Bhatt MD MD mt2 Corrections: (The following items were deleted from the chart) 14:28 14:22 PMHx: Bechects; aj1 tw2 16:49 16:49 Rocephin 1 grams IV at calculated rate in left antecubital jl
--- NOTE | 2019-07-02 16:00 | EDPHYS ---
Physician Documentation [facility] Name: Rosamaria Castillo Age: 44 yrs Sex: Female : 1975 Arrival Date: 07/02/2019 Time: 14:17 Bed 6 Private MD: Minor Multani B ED Physician Giovanna Bhatt HPI: 07/02 15:55 This 44 yrs old Female presents to ER via Ambulatory with complaints of ma2 Urinary Problem. 15:55 The patient presents with abdominal pain. The patient complains of pain in the right ma2 mid back. Onset: The symptoms/episode began/occurred gradually, 2 day(s) ago. Associated signs and symptoms: Pertinent negatives: dysuria, urinary frequency, headache. Associated signs and symptoms: Pertinent negatives:. Severity of pain: At its worst the pain was moderate in the emergency department the pain is unchanged. sent by pco, failed outpatient. 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 LMP 06/2019 aj1 Historical: - Allergies: 14:22 No Known Allergies; aj1 - Home Meds: 14:22 Adderall XR 20 mg Oral cp24 1 cap BID [Active]; Clonidine Oral [Active]; diclofenac aj1 sodium 75 mg Oral TbEC 1 tab daily [Active]; Enbrel 20MG 1 tab three times a day [Active]; Flonase 50 mcg/actuation Nasal spsn 1 spray 2 times per day [Active]; Lamictal 200 mg Oral tab 1 tab 2 times per day [Active]; Plaquenil 200 mg Oral tab 1 tab 2 times per day [Active]; Seasonique 0.15 mg-30 mcg (84)/10 mcg (7) Oral 3MPk 1 tab once daily [Active]; Toprol XL 200 mg Oral Tb24 1 tab BID [Active]; - PMHx: 14:22 narcolepsy; 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 - Social history:: Smoking status: Patient/guardian denies using tobacco, Patient/guardian denies using alcohol, street drugs, The patient lives with family. - Ebola Screening: : Patient denies travel to an Ebola-affected area in the 21 days before illness onset. - Family history:: not pertinent. ROS: 15:55 Constitutional: Negative for fever, chills, and weight loss. ma2 15:55 All other systems are negative. Exam: 15:55 Constitutional: This is a well developed, well nourished patient who is awake, alert, ma2 and in no acute distress. Chest/axilla: Normal chest wall appearance and motion. Nontender with no deformity. No lesions are appreciated. Cardiovascular: Regular rate and rhythm with a normal S1 and S2. No gallops, murmurs, or rubs. Normal PMI, no JVD. No pulse deficits. Respiratory: Lungs have equal breath sounds bilaterally, clear to auscultation and percussion. No rales, rhonchi or wheezes noted. No increased work of breathing, no retractions or nasal flaring. Abdomen/GI: Soft, non-tender, with normal bowel sounds. No distension or tympany. No guarding or rebound. No evidence of tenderness throughout. Skin: Warm, dry with normal turgor. Normal color with no rashes, no lesions, and no evidence of cellulitis. MS/ Extremity: Pulses equal, no cyanosis. Neurovascular intact. Full, normal range of motion. Vital Signs: 14:22 BP 112 / 85; Pulse 103; Resp 20; Temp 99.1; Pulse Ox 100% on R/A; Weight 65.32 kg (R); aj1 Height 5 ft. 5 in. (165.10 cm) (R); Pain 9/10; 15:14 BP 113 / 78; Pulse 86; Resp 19; Pulse Ox 100% on R/A; tw2 16:45 BP 120 / 76; Pulse 89; Resp 19; Pulse Ox 100% on R/A; tw2 14:22 Body Mass Index 23.96 (65.32 kg, 165.10 cm) aj1 MDM: 14:23 Patient medically screened. ma2 15:55 Differential diagnosis: pancreatitis, gastritis, gastroesophageal reflux disease, ma2 Pyelonephritis, urinary tract infection. Data reviewed: vital signs, nurses notes. Sepsis 6 hour Focused Exam: Focused assessment performed: July 02, 2019 at 15:56 Heart: Regular rate/rhythm. Lungs: noted to be clear bilaterally. Capillary refill examination performed. Capillary refill noted to be brisk. Skin examination performed. Skin examination noted to be unremarkable. Current patient vital signs reviewed: Yes. Neuro: Patient's neurological exam has improved from previous exam. Cardio: Cardiovascular exam improved from previous exam. Heart rate and blood pressure have improved. Respiratory: Respiratory exam improved from previous exam. Counseling: I had a detailed discussion with the patient and/or guardian regarding: the historical points, exam findings, and any diagnostic results supporting the discharge/admit diagnosis, the presence of at least one elevated blood pressure reading (>120/80) during this emergency department visit. Response to treatment: the patient's symptoms have resolved after treatment. 07/02 14:25 Order name: Urine Culture [facility] 07/02 14:25 Order name: Basic Metabolic Panel; Complete Time: 15:44 ma2 07/02 14:25 Order name: Blood Culture Adult (2) [facility] 07/02 14:25 Order name: CBC with Diff; Complete Time: 15:28 ma2 07/02 14:25 Order name: Lactate; Complete Time: 15:28 ma2 07/02 14:25 Order name: LFT's; Complete Time: 15:44 ma2 07/02 14:25 Order name: Lipase; Complete Time: 15:44 ma2 07/02 14:25 Order name: Procalcitonin; Complete Time: 15:44 ma2 07/02 14:25 Order name: Protime (+inr); Complete Time: 15:28 ma2 07/02 14:25 Order name: Ptt, Activated; Complete Time: 15:28 ma2 07/02 14:25 Order name: Urine Microscopic Only; Complete Time: 15:28 ma2 07/02 14:51 Order name: Urine Dipstick--Ancillary (enter results); Complete Time: 15:28 hb 07/02 14:51 Order name: Urine --Ancillary (enter results); Complete Time: 15:28 hb 07/02 15:16 Order name: Glucose, Ancillary Testing; Complete Time: 15:28 EDNC 07/02 14:25 Order name: Cardiac monitoring; Complete Time: 14:39 ma2 07/02 14:25 Order name: EKG - Nurse/Tech; Complete Time: 14:39 ma2 07/02 16:20 Order name: CONS Pharmacy Consult [facility] 07/02 16:21 Order name: Regular EDNC 07/02 16:21 Order name: Basic Metabolic Panel [facility] 07/02 16:21 Order name: Basic Metabolic Panel [facility] 07/02 16:21 Order name: CBC with Automated Diff EDMS 07/02 16:21 Order name: CBC with Automated Diff EDMS 07/02 14:25 Order name: O2 Per Protocol; Complete Time: 14:39 ma2 07/02 14:25 Order name: O2 Sat Monitoring; Complete Time: 14:39 ma2 07/02 14:25 Order name: Urine Dipstick-Ancillary (obtain specimen); Complete Time: 14:47 ma2 Administered Medications: 14:41 Drug: Acetaminophen 1000 mg Route: PO; tw2 15:45 Follow up: Response: No adverse reaction; Temperature is decreased tw2 15:00 Drug: NS 0.9% (30 ml/kg) 30 ml/kg Route: IV; Rate: bolus; Site: left antecubital; tw2 16:30 Follow up: Response: No adverse reaction; IV Status: Completed infusion; IV Intake: [facility] [place] 1959ml 15:28 Drug: Zofran 4 mg Route: IVP; Site: left antecubital; tw2 16:50 Follow up: Response: No adverse reaction jl7 15:30 Drug: morphine 4 mg {Note: rass 0.} Route: IVP; Site: left antecubital; tw2 16:00 Follow up: Response: No adverse reaction; Pain is decreased jl7 16:45 Drug: Rocephin 1 grams Route: IV; Rate: calculated rate; Site: left antecubital; jl7 16:50 Follow up: Response: No adverse reaction; IV Status: Completed infusion [facility] [place] Disposition: 07/02/19 15:59 Hospitalization ordered by Lorena Hudson for Observation. Preliminary diagnosis are Systemic inflammatory response syndrome (SIRS) of non-infectious origin, Nonobstructive reflux-associated chronic pyelonephritis - acute. - Bed requested for Telemetry/MedSurg (observation). - Status is Observation. hb - Condition is Stable. - Problem is new. - Symptoms are unchanged. UTI on Admission? Yes Signatures: Dispatcher [employer] EDMS Jesika Morfin RN RN aj1 Vale Garza RN LLUVIA Dana Chan RN RN hb Wise, Tara, RN RN tw2 Malika Cook RN RN jl7 Giovanna Bhatt MD MD [facility] Mo, Tammie eb Corrections: (The following items were deleted from the chart) 14:28 14:22 PMHx: Bechects; aj1 tw2 16:01 15:59 Hospitalization Ordered by Lorena Hudson MD for Observation. Preliminary eb diagnosis is Systemic inflammatory response syndrome (SIRS) of non-infectious origin; Nonobstructive reflux-associated chronic pyelonephritis - acute. Bed requested for Telemetry/MedSurg (observation). Status is Observation. Condition is Stable. Problem is new. Symptoms are unchanged. UTI on Admission? Yes. ma2 16:34 16:01 07/02/2019 15:59 Hospitalization Ordered by Lorena Hudson MD for Observation. dw Preliminary diagnosis is Systemic inflammatory response syndrome (SIRS) of non-infectious origin; Nonobstructive reflux-associated chronic pyelonephritis - acute. Bed requested for Telemetry/MedSurg (observation). Status is Observation. Condition is Stable. Problem is new. Symptoms are unchanged. UTI on Admission? Yes. eb 17:15 16:34 07/02/2019 15:59 Hospitalization Ordered by Lorena Hudson MD for Observation. hb Preliminary diagnosis is Systemic inflammatory response syndrome (SIRS) of non-infectious origin; Nonobstructive reflux-associated chronic pyelonephritis - acute. Bed requested for Telemetry/MedSurg (observation). Status is Observation. Condition is Stable. Problem is new. Symptoms are unchanged. UTI on Admission? Yes. dw
[2019-07-02] MEDS ORDERED: MORPHINE 2 MG/ML SYR IV PRN (16:17)
[2019-07-02] MEDS ORDERED: CEFTRIAXONE/SWI 1gm 1 GM/10 ML SYR ONE (16:34)
[2019-07-02] MEDS: CEFTRIAXONE/SWI 2gm 2 GM/20 ML SYR IVP SCH (17:00)
[2019-07-02 17:48] VITALS: BMI 23.9
[2019-07-02] MEDS: NA CHLORIDE 0.9% 1,000 ML IV SCH (17:50)
[2019-07-02] MEDS: FLUCONAZOLE 400 MG IVPB 400 MG/200 ML BAG IV SCH (18:25)
[2019-07-02] MEDS: ONDANSETRON 4 MG/2 ML VIAL IV PRN (19:52)
[2019-07-02] MEDS: ACETAMINOPHEN 500 MG TAB PO PRN (22:00)
[2019-07-03] MEDS ORDERED: HYDROMORPHONE HCL 1 MG/ML INJ IV ONE (00:23)
--- NOTE | 2019-07-03 03:12 | HP ---
Date of Admission: 07/02/2019 Reason For Admission: Fever, chills, night sweats with lower abdominal pain. History Of Present Illness: This is a 44-year-old female with history of narcolepsy, Behcet syndrome , who presented to the primary care physician on with a fever up to 104, muscle pain. She t hought that she had a flu. Upon further evaluation by the PCP, a UA was done and showed positive. Shakeel chavarria was started on antibiotic with cefepime and she was sent home. She continued to have signific ant night sweats, and she developed lower abdomen pain and she presented to the emergency room where she was given ceftriaxone, IV fluid, and sent home again. Her labs yesterday done and UA was showing no growth. But according to the patient, her UA was positive at her PCP and showed some growth. To day, she continued to have a significant night sweat and low-grade temperature and because of the sev erity of the night sweats, she decided to come to emergency room where she was evaluated again and fo und to have leukocytosis with white blood cells of 13.1, left shift with neutrophils of 79% _ patient because of the severity of symptoms without relief on oral antibiotics. Currently, she is feeling better. She received morphine in the emergency room. Her was at the bedside. Her U A today showed leukocyte esterase, as well as white blood cells, some budding worrisome for yeast. I do not see any urine culture from her PCP office. Review of Systems: Otherwise as below. Past Medical History: Significant for narcolepsy and Behcet syndrome. Past Surgical History: None. Social History: She is . She has 1 kid. 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 She does not drink, smoke, or use any drugs. Family History: Father had of ALS. Mother alive and she has severe osteoarthritis. Allergies: NONE. Home Medications: She is on Adderall XR 20 mg twice a day, clonidine orally, Lamictal 200 mg orally twice a day, oral contraceptives. Review of Systems: She had a fever earlier. She has chills. She has night sweats. She did not have any syncope. No s hortness of breath. No cough. No sputum. No chest pain, palpitations, PND or orthopnea, dyspnea on exertion. No nausea or vomiting. She does have lower abdominal pain. She denies any dysuria, freq uency, or urgency. She has no diarrhea. She has no depression, anxiety, seizure, or stroke. Physical Examination: Vital Signs: Blood pressure is 113/78, pulse 86, respiratory rate 19, saturating 100%, temperature 9 9.1. General: She is alert and oriented x3. Does not look in any distress. HEENT: Atraumatic, normocephalic. PERRLA. Oral mucosa is moist. Neck: Supple. No JVD. No bruits. Chest: Clear to auscultation. Good air entry. Heart: Regular rate and rhythm. S1, S2 normal. No gallop or murmur. Abdomen: Soft, nontender. No masses. No hepatosplenomegaly. Positive bowel sounds. Extremities: No clubbing, cyanosis, or edema. No calf tenderness. Neurologic: Grossly intact. Cranial nerves exam 2 through 12 intact. Normal sensation. Normal ref lexes. Normal muscle strength. Laboratory Data: Labs done today showed CBC with a white blood cells 13.1, left shift neutrophils of 79%. Chemistry within normal limits except for sodium of 134, alkaline phosphatase 158. Procalcito sheba high at 0.95. Assessment And Plan: This is a 44-year-old female with history of narcolepsy and Behcet syndrome, pr esented with history of 3 days of fever, lower abdominal pain, positive UA. 1.Urosepsis. We will proceed with blood culture, UA, urine culture. Continue IV antibiotic. We wi ll place patient on ceftriaxone given the budding on the UA, I will discharge her on Diflucan for now . If symptoms does not get better by tomorrow, I will proceed with a CAT scan to evaluate for pyelon ephritis or other etiology. 2.Abdominal pain. We will proceed with morphine. 3.Night sweats. We will continue patient on IV fluid. 4.History of narcolepsy and Behcet syndrome. We will continue patient on home medication with cloni dine and Adderall when she bring her home medication. 5.Fever, p.r.n. Tylenol. MARY/SHIRLEY Voice ID: [id number]
[2019-07-03 05:37] LABS: Absolute Lymphocytes (CBC) 1.6 K/uL (0.7-4.9); Basophils % 0.9 % (0-1.3); Hematocrit 33.4 % (36.0-45.0); Lymphocytes % 16.8 % (15.3-44.8); RBC Red Blood Cell Count 3.65 M/uL (3.86-4.86)
[2019-07-03 05:55] LABS: BUN Blood Urea Nitrogen 4 mg/dL (7-18); Bicarbonate 25 mmol/L (21-32); Glucose Level 91 mg/dL (74-106); Potassium 4.4 mmol/L (3.5-5.1); Sodium Level 139 mmol/L (136-145)
[2019-07-03] MEDS: HYDROMORPHONE HCL 0.5 MG/0.5 ML INJ IV PRN ×3 (06:17→18:15)
[2019-07-03] MEDS: NA CHLORIDE 0.9% 1,000 ML IV SCH ×3 (06:17→23:00)
[2019-07-03 06:51] LABS: Blood Morphology Comment NOT SEEN (NOT SEEN); Platelet Estimate ADEQ
[2019-07-03] MEDS: CEFTRIAXONE/SWI 2gm 2 GM/20 ML SYR IVP SCH (09:30)
--- NOTE | 2019-07-03 12:29 | RAD REPORT ---
EXAM DESCRIPTION: CT - Head Brain W/Wo Con - 07/03/2019 12:18 pm CLINICAL HISTORY: headache Headache, drowsiness COMPARISON: C Spine Wo Con dated 07/03/2019 TECHNIQUE: All CT scans are performed using dose optimization technique as appropriate and may inclu de automated exposure control or mA/KV adjustment according to patient size. FINDINGS: No intracranial hemorrhage, hydrocephalus or extra-axial fluid collection.No areas of brai n edema or evidence of midline shift. The paranasal sinuses and mastoids are clear. The calvarium is intact. No pathologic post-contrast enhancement seen. IMPRESSION: No acute or aggressive intracranial abnormality. No pathologic post-contrast finding.
--- NOTE | 2019-07-03 12:42 | RAD REPORT ---
EXAM DESCRIPTION: CT - C Spine Wo Con - 07/03/2019 12:18 pm CLINICAL HISTORY: neck pain Headache, drowsiness, neck injury, neck pain, radiculopathy COMPARISON: Head Brain W/Wo Con dated 07/03/2019; Chest Single View dated 07/01/2019 FINDINGS: The cervical vertebral body heights and disc spaces are largely maintained. No evidence of acute cervical spine fracture or subluxation. Prevertebral soft tissues are normal in thickness. IMPRESSION: Negative for acute cervical spine abnormality. All CT scans are performed using dose optimization technique as appropriate and may include automated exposure control or mA/KV adjustment according to patient size.
[2019-07-03] MEDS ORDERED: CLONIDINE 0.1 MG/PATCH TD SCH (14:30)
[2019-07-03] MEDS: FLUOXETINE 20 MG CAP PO SCH (16:06)
[2019-07-03] MEDS: lamoTRIgine 100 MG TAB PO SCH ×2 (16:06→21:27)
[2019-07-03] MEDS: FLUCONAZOLE 400 MG IVPB 400 MG/200 ML BAG IV SCH (16:08)
[2019-07-03] MEDS: ONDANSETRON 4 MG/2 ML VIAL IV PRN (16:14)
--- NOTE | 2019-07-03 16:34 | PN ---
Subjective: Currently, patient is lying in bed. She looks comfortable. She stated that she had sev ere headache still as she want Dilaudid for that. Her abdominal pain is subsiding. She had not dysu chantel. She is worried the fact that her urine culture was negative. There is no chest pain or abdomin al pain. Review of Systems: Otherwise negative. Physical Examination: Vital Signs: Blood pressure is 107/60, respiratory rate 17, pulse 78, temperature 98.3. She is satu rating normal on room air. General: She is alert and oriented x3. Does not look in any distress. HEENT: Atraumatic, normocephalic. PERRLA. Oral mucosa is moist. Neck: Supple. No JVD. No carotid bruits. Chest: Clear to auscultation. Good air entry. Heart: Regular rate and rhythm. S1, S2 normal. No gallop or murmur. Abdomen: Soft, nontender. No masses. No hepatosplenomegaly. Positive bowel sounds. Extremities: No clubbing, cyanosis, or edema. No calf tenderness. Neurologic: Grossly intact. Laboratory Data: Today, showed CBC was normal except for hemoglobin 11, neutrophilia resolved. Chem istry was normal. BUN and creatinine were normal. Procalcitonin level yesterday was 0.95. Urine cu lture showed less than 10,000 colony. Assessment And Plan: A 44-year-old female with history of narcolepsy and Behcet syndrome, presented with history of 3 days of fever, lower abdominal pain, positive UA. 1.Urosepsis. So far, blood culture is negative. Urine culture inconclusive, but the patient will b e on p.o. antibiotic. We will try to obtain the urine culture results from the office. She did on 1 a day. We will continue ceftriaxone. She is doing well. There was no more fever. Her white blood cells back to normal. I will also continue on Diflucan. Given the fact the finding of spotting on her UA done yesterday at least through tomorrow and then we can stop Diflucan. 2.Abdominal pain, resolved almost, so no need to do a CT of the abdomen. 3.Night sweats, resolved with fever. 4.Severe headache, etiology? I will proceed with CAT scan of the head to rule out any other etiolog y patient demanding Dilaudid for that. I advise normally if there is no finding on the CT which was treated with Tylenol or ibuprofen. 5.Discontinue plan hopefully in a.m. if headache resolved and continues to feel better. MARY/SHIRLEY Voice ID: [id number] Report ID: [id number]
[2019-07-04] MEDS: HYDROMORPHONE HCL 0.5 MG/0.5 ML INJ IV PRN ×2 (00:05→04:16)
[2019-07-04] MEDS: ACETAMINOPHEN 500 MG TAB PO PRN (02:12)
[2019-07-04] MEDS: NA CHLORIDE 0.9% 1,000 ML IV SCH (04:17)
[2019-07-04] MEDS: FLUOXETINE 20 MG CAP PO SCH (09:35)
[2019-07-04] MEDS: lamoTRIgine 100 MG TAB PO SCH (09:35)
[2019-07-04] MEDS: CEFTRIAXONE/SWI 2gm 2 GM/20 ML SYR IVP SCH (09:35)
[2019-07-04] MEDS ORDERED: KETOROLAC 30 MG/ML INJ IV ONE ×2 (09:47→11:04)
[2019-07-04 10:38] VITALS: O2SAT 94
[2019-07-04 10:41] VITALS: BP 146/84; TEMP 98.5
--- NOTE | 2019-07-04 20:51 | EKG ---
Test Date: 2019-07-02 Test Time: 14:36:06 [employer] Consultant: KRIS MEASUREMENT RESULTS: Intervals: Rate: 96 TX: 128 QRSD: 76 QT: 344 QTc: 434 Soso: P: 36 TX: 128 QRS: 67 T: 46 INTERPRETIVE STATEMENTS: Normal sinus rhythm Normal ECG Compared to ECG 07/01/2019 15:44:14 No significant changes Electronically Signed On 07-04-19 20:47:11 DISULFURIZER TENDER by Chad Nolan
--- NOTE | 2019-07-05 02:13 | DS ---
Date of Discharge: 07/04/2019 Admitting Diagnoses: 1.Sepsis secondary to urinary tract infection. 2.Acute cystitis without hematuria secondary to Escherichia coli. 3.Generalized abdominal pain, resolved. 4.History of narcolepsy, resolved. 5.Headache, improved. 6.Behcet syndrome, stable. Hospital Course: Patient is a 44-year-old female with a history of narcolepsy, Behcet syndrome, come s in with sepsis-type picture with fever as high as 104, muscle pain, night sweats. Patient felt lopez t she had flu. She was seen by PCP. UA was positive and cultures were obtained. She was given Ceft in; however, had worsening condition, therefore came into the ER. Patient had left shift along with white count of 13,000. Cultures were obtained. Her repeat cultures including blood cultures and uri ne cultures did not show any growth. Her white blood cell count normalized. She did not have any fu rther fevers. I contacted Dr. Minor Multani, patient's primary care physician and verified that her urine culture taken in the PCP's office did grow out E coli sensitive to Ceftin and Macrobid. Patien t's UA did show some yeast as well. Patient complained of some neck pain and headache. CT scans of the cervical spine and head were done, which did not show any acute abnormalities. Patient did have some tenderness to palpation on the trapezius muscle on the right, likely muscle strain from rigors. Patient overall had been doing significantly better, had no further fevers. No signs of sepsis. Wh ite count normalized. No chills. No night sweats. She was able to ambulate without difficulty. e was able to tolerate her diet. No nausea or vomiting. Patient did have some headache. She was gi kevin Toradol. She stated that morphine and Dilaudid did not improve her headache. Toradol did allevi ate her headache; however, did have some residual headache. There were no signs of meningitis. No p hotophobia or phonophobia. Patient was then cleared for discharge, was sent home in a stable conditi on. Activity: As tolerated. Medications: Finish off course of Macrobid and fluconazole. Return to ER for worsening condition. Followup: Follow up with primary care physician, Dr. Minor Multani in 2-3 days. Return to ER for wo rsening condition. Diet: Regular. Activity: As tolerated. Physical Examination: General: Awake, alert, oriented x3. No acute distress. CV: S1, S2. Respiratory: Moving air well bilaterally. Abdomen: Soft, nontender, nondistended. Positive bowel sounds. Extremities: No clubbing, cyanosis, or edema. Neurologic: Nonfocal. Neck: Supple. Able to touch her chin to the chest. /SHIRLEY Voice ID: [id number] Report ID: [id number]
== END 2019-07-04 11:41 | disposition home or self-care (01) ==
LOC: ER 14:14 → SUPCPDRO 14:14 → ERHOLD 17:04 → 2ND 17:08
PROVIDERS: ADMIT Internal Medicine; ATTEND Internal Medicine
DX: A41.9 Sepsis, unspecified organism (principal); N30.00 Acute cystitis without hematuria; B96.20 Unspecified Escherichia coli [E. coli] as the cause of diseases classified elsewhere; R61 Generalized hyperhidrosis; G47.419 Narcolepsy without cataplexy; M35.2 Behcet's disease; R51 Headache
CPT/HCPCS: 96361; 93005; 87040 ×2; 87088; 85025 ×2; 80048 ×2; 36415; 81025; 85610; 82947; 80076; 83605; 85730; 83690; 84145; 72125; 96375; 96374; 99285; J2270; J1450 ×2; J1170 ×6; J0696 ×3; J7030 ×5; J2405 ×3; G0378 ×4; 81003; 81015; 87086; 96365

== ENCOUNTER 2020-02-03 05:08 | Emergency (ER) | payer OTHER, SELFPAY ==
--- OUTSIDE RECORDS SUMMARY | 2020-02-03 05:10 | XMS REPORT | Continuity of Care Document ---
:1975 Author Organization [facility] t Address [address] [place] [address] Care Team Providers Name Role Phone Unavailable Unavailable Unavailable Payers Payer Name Policy Type Policy Number Effective Date Expiration Date S ource Problems This patient has no known problems. Allergies, Adverse Reactions, Alerts Allergy Allergy Status Severity Reaction(s) Onset Inactive Treating Comm ents Source Name Type Date Date Clinician codeine DA Active [facility] [place] No Known DA Active [facility] Medications This patient has no known medications. Procedures This patient has no known procedures. Results Test Description Test Time Test Comments Results Result [facility] e Comments UTERUS,OTHER THAN 2019-08-25 PROLAPSE/NGUYEN 08:52:00 --------RUN DATE: 08/25/19 [facility] PAGE 1 RUN TIME: 1446 Specimen Inquiry RUN USER: INTERFACE --------PATIENT: AUDRA ORDONEZ LOC: JOESPH U #: [id number] AGE/SX: 44/F [facility] RE08/23/19REG DR: Mahesh Choudhury III, MD : [birth year] BED: A DIS: 08/23/19 STATUS: DIS Pradip TLOC: -------- SPEC #: [id number] RECD: 08/23/19 STATUS: ISIS REQ #: [id number] MARC: 08/23/19- SUBM DR: Mahesh Choudhury III, MD ENTERED: 08/23/19 SP TYPE: UTERUSOTH OTHR DR: ORDERED: LEVEL V SURGICA CODES: R10178 - UTERUS, NOS PROCEDURES: LEVEL V SURGICA (Incomplete) TISSUES: UTERUS, NOS - UTERUS, CERVIX AND BILATERAL FALLOPIAN TUBES CLINICAL HISTORY 44 year old, menorrhagia, metrorrhagia, pelvic pain (kr) FINAL DIAGNOSIS Uterus, cervix, bilateral fallopian tubes; hysterectomy and bilateral salpingectomy: cervix - mild chronic inflammation, parakeratosis, focal acute inflammation with mucosal erosion endometrium - benign myometrium - leiomyoma (microscopic) uterine serosa - focal fibrous adhesions and few foci of endometriosis bilateral fallopian tubes - fibrous adhesions right fallopian tube - endometriosis CPT code(s): 56837 pkg/bianca dt: 08/25/19 GROSS DESCRIPTION ANATOMIC SOURCE OF TISSUE (per Requisition): Uterus, cervix, bilateral fallopian tubes The specimen is received in formalin, labeled with the patient's name and designated "uterus, cervix, bilateral fallopian tubes". The specimen consists of an 85 gm, 9.5 x 6.0 x 4.0 cm intact uterus with an attached cervix and fimbriated fallopian tubes (right 6.5 cm in length and left 6.5 cm in length). The uterine serosa is rodriguez-pink and slightly nodular with a few possible adhesions. The 3.5 cm ectocervix displays a central 1 cm slit-like os. The endometrial cavity contains blood-tinged mucoid material. The endometrium is rodriguez-red and hemorrhagic with a thickness measuring up to 0.1 cm. The myometrium is rodriguez and slightly trabeculated with a wall thickness measuring up to 1.8 cm. There are no nodules. The fallopian tubes are pink-purple and hyperemic with pin-point lumens. CONTINUED ON NEXT PAGE --------RUN DATE: 08/25/19 [facility] PAGE 2 RUN TIME: 1446 Specimen Inquiry RUN USER: INTERFACE --------SPEC #: [id number] PATIENT: AUDRA ORDONEZ #[id number] (Continued) GROSS DESCRIPTION (Continued) Section code: A1 - cervix, A2 - anterior endomyometrium, A3 - posterior endomyometrium, A4 - additional endometrium and possible serosal adhesions, A5 - territory account representative sections of of right fallopian tube, A6 - territory account representative sections of left fallopian tube. kelsy 08/23/19 MICROSCOPIC DESCRIPTION The cervix has a mild infiltrate of small lymphocytes, plasma cells, and a focal mild infiltrate of neutrophil. Focal mucosal erosion is present. Parakeratosis is present. The endometrium is composed of evenly small tubular glands with no significant nuclear stratification or mitotic activity. A microscopic leiomyoma is identified. The uterine serosa has fibrous adhesions and a few foci of endometriosis. The bilateral fallopian tubes have intact architecture and are lined by serous epithelium without cytologic atypia. A few foci of endometriosis are identified involving the right fallopian tube. The right fallopian tube has a paratubal cyst. susie dt: 08/25/19 Signed Mary Jane Pedroza 08/25/19 0852 -------- END OF REPORT CHEMISTRY 7 PROFILE 2019-08-16 18:06:00 Test Item Value Reference Range Interpretation Comme nts SODIUM (test code = NA) 140 mEq/L 135-145 N POTASSIUM (test code = K) 4.4 mEq/L 3.5-5.0 N CHLORIDE (test code = CL) 101 mEq/L 100-115 N CARBON DIOXIDE (test code = CO2) 26 mEq/L 22-31 N ANION GAP (test code = GAP) 17.00 10-20 N GLUCOSE (test code = GLU) 61 mg/dL 65-110 L BLOOD UREA NITROGEN (test code = BUN) 8 mg/dL 7-18 N GLOMERULAR FILTRATION RATE (test code = GFR) 110 ml/min >60 N CREATININE (test code = CREAT) 0.6 mg/dL 0.5-1.0 N CALCIUM (test code = CA) 8.9 mg/dL 8.4-10.2 N HCG SERUM [id number] 18:06:00 Test Item Value Reference Range Interpretation Comments HCG SERUM QUAL (test code = HCGQL) NEGATIVE CHEMISTRY 7 [id number] 17:43:00 Test Item Value Reference Range Interpretation Comments SODIUM (test code = NA) mEq/L 135-145 POTASSIUM (test code = K) mEq/L 3.5-5.0 CHLORIDE (test code = CL) mEq/L 100-115 CARBON DIOXIDE (test code = CO2) mEq/L 22-31 ANION GAP (test code = GAP) 10-20 GLUCOSE (test code = GLU) mg/dL 65-110 BLOOD UREA NITROGEN (test code = BUN) mg/dL 7-18 CREATININE (test code = CREAT) mg/dL 0.5-1.0 CALCIUM (test code = CA) mg/dL 8.4-10.2 HCG SERUM [id number] 17:43:00 Test Item Value Reference Range Interpretation Comments HCG SERUM QUAL (test code = HCGQL) NEGATIVE CBC W/AUTO [id number] 16:42:00 Test Item Value Reference Range Interpretation Comments WHITE BLOOD CELL (test code = WBC) 8.9 K/mm3 6.6-12.1 N RED BLOOD CELL (test code = RBC) 4.55 M/mm3 3.45-5.01 N HEMOGLOBIN (test code = HGB) 13.6 g/dL 10.7-13.9 N HEMATOCRIT (test code = HCT) 43.4 % 32.1-42.1 H MEAN CELL VOLUME (test code = MCV) 95 fL 84.1-94.8 H MEAN CELL HGB (test code = MCH) 29.9 pg 27-35 N MEAN CELL HGB CONCETRATION (test 31.3 gm/dL 32.2-34.1 L code = MCHC) RED CELL DISTRIBUTION WIDTH (test 13.3 % 12.4-16.5 N code = RDW) PLATELET COUNT (test code = PLT) 291 K/mm3 133-385 N MEAN PLATELET VOLUME (test code = 11.5 fl 9.1-12.7 N MPV) NEUTROPHIL % (test code = NT%) 58.7 % 56.5-79.4 N LYMPHOCYTE % (test code = LY%) 25.2 % 14.3-34.3 N MONOCYTE % (test code = MO%) 10.0 % 5.1-10.4 N EOSINOPHIL % (test code = EO%) 3.4 % 0.1-3.0 H BASOPHIL % (test code = BA%) 1.8 % 0.1-1.0 H NEUTROPHIL # (test code = NT#) 5.2 K/mm3 LYMPHOCYTE # (test code = LY#) 2.2 K/mm3 MONOCYTE # (test code = MO#) 0.9 K/mm3 EOSINOPHIL # (test code = EO#) 0.30 K/mm3 BASOPHIL # (test code = BA#) 0.2 K/mm3 RBC MORPHOLOGY REQUIRED (test code NORMAL NORMAL = RBCM) PLATELET MORPHOLOGY REQUIRED (test NORMAL NORMAL code = PLTMR) - US PELVIS [id number] 16:28:00 Patient Name: AUDRA ORDONEZ Unit No: [id number] EXAMS: CPT CODE: [id number] US PELVIS COMPLETE 77606 CLINICAL HISTORY: Dysfunctional uterine bleeding. Real-time ultrasound examination of the pelvis was performed using transabdominal and endovaginal approach. The uterus measures8.1 x 3.9 x 4.7 cm in greatest dimensions with endometrium measuring 8 mm in AP dimension. There is no evidence of uterine fibroid or other significant uterine abnormality. The right ovary charu sures 24 x 22 x 28 mm and [...] Technologist: Santi Stanton RDMS Probe: Trnscrbd D/ (7110) [place]ymar[place] Orig Print D/T: S: 03/22/2019 (3848) [facility] NAME: AUDRA ORDNOEZ Radiology Department PHYS: Mahesh Prince III, MD [address] : 1975 AGE: 43 SEX: [place], [place] [address] LOC: [place].RAD PHONE #: [phone] EXAM DATE: 03/22/2019 STATUS: REG CLI FAX #: [phone] RAD NO: [id number] Page 1 Signed Report Patient Name: AUDRA ORDONEZ Unit No: [id number] EXAMS: CPT CODE: [id number] US PELVIS COMPLETE 34863 <Continued> [facility] NAME: AUDRA ORDONEZ Radiology Department PHYS: Mahesh Harden III, MD [address] : 1975 AGE: 43 SEX: [place], [place] [address] LOC: Rajani.RAD PHONE #: [phone] EXAM DATE:03/22/2019 STATUS: REG CLI FAX #: [phone] RAD NO: [id number] Page 2 Signed Report- US TRANSVAGINAL W/PELVIS 2019-03-22 16:28:00 Patient Name: AUDRA ORDONEZ Unit No: [id number] EXAMS: CPT CODE: [id number] US TRANSVAGINAL W/PELVIS 64133 CLINICAL HISTORY: Dysfunctional uterine bleeding. Real-time ultrasound examination of the pelvis was performed using transabdominal and endovaginal approach. The uterus measures8.1 x 3.9 x 4.7 cm in greatest [...] Mahesh Choudhury III, MD Technologist: Santi Stanton RDNY Probe: [id number] Trnscrbd D/ (1628) [place] Orig Print D/T: S: 03/22/2019 (8221) [facility] NAME: AUDRA ORDONEZ Radiology Department PHYS: Mahesh Harden III, MD [address] : 1975 AGE: 43 SEX: [place], [place] [address] LOC: Rajani.RAD PHONE #: [phone] EXAM DATE: 03/22/2019 STATUS: REG CLI FAX #: [phone] RAD NO: [id number] Page 1 Signed Report Patient Name: JIAME ORDONEZ HI Unit No: [id number] EXAMS: CPT CODE: [id number] US TRANSVAGINAL W/PELVIS 72537 <Continued> [facility] NAME: AUDRA ORDONEZ Radiology Department PHYS: Mahesh Harden III, MD [address] : 1975 AGE: 43 SEX: [place], [place] [address] LOC: [place].RAD PHONE #: [phone] EXAM DATE:03/22/2019 STATUS: REG CLI FAX #: [phone] RAD NO: [id number] Page 2 Signed Report
[2020-02-03 06:22] LABS: Absolute Lymphocytes (CBC) 1.8 K/uL (0.7-4.9); Basophils % 0.5 % (0-1.3); Hematocrit 46.5 % (36.0-45.0); Lymphocytes % 12.1 % (15.3-44.8); RBC Red Blood Cell Count 5.09 M/uL (3.86-4.86)
[2020-02-03 06:43] LABS: Potassium 3.6 mmol/L (3.5-5.1)
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
[2020-02-03 09:22] VITALS: BP 101/72; TEMP 97.5; O2SAT 97
== END 2020-02-03 09:11 | disposition home or self-care (01) ==
LOC: ER 05:08
DX: S02.2XXA Fracture of nasal bones, initial encounter for closed fracture (principal); V86.65XA Passenger of 3- or 4- wheeled all-terrain vehicle (ATV) injured in nontraffic accident, initial encounter
CPT/HCPCS: 36415; 70450; 70486; 71260; 72125; 74177; 76377; 80048; 82565; 85025; 86850; 86900; 86901; 99284; G0390; Q9967

== ENCOUNTER 2024-09-24 02:37 | Emergency (ER) | payer OTHER, SELFPAY ==
[2024-09-24] MEDS ORDERED: LIDOCAINE 4% PATCH ONE (02:58)
[2024-09-24] MEDS ORDERED: KETOROLAC 30 MG/ML INJ ONE (02:58)
[2024-09-24] MEDS ORDERED: DIAZEPAM 10 MG/2 ML INJ SYRINGE ONE (02:58)
[2024-09-24] MEDS ORDERED: CYCLOBENZAPRINE 10 MG TAB ONE (03:44)
--- NOTE | 2024-09-24 04:34 | ER ---
Nurse's Notes [facility] Name: Rosamaria Castillo Age: 49 yrs Sex: Female : 1975 Arrival Date: 09/24/2024 Time: 02:37 Bed 18 Private MD: Diagnosis: Muscle spasm of back Presentation: 09/24 02:40 Chief complaint: Patient states: my pain in the neck \T\ in between my scapular area is rg5 getting worst, radiating to my left shoulder. taken baclofen 10 mg 2 hrs ago but no relief. 02:40 Coronavirus screen: Client denies travel out of the [place] in the last 14 days. Ebola rg5 Screen: Patient denies exposure to infectious person. Patient denies travel to an Ebola-affected area in the 21 days before illness onset. Initial Sepsis Screen: Does the patient meet any 2 criteria? No. Patient's initial sepsis screen is negative. Does the patient have a suspected source of infection? No. Patient's initial sepsis screen is negative. Risk Assessment: Do you want to hurt yourself or someone else? Patient reports no desire to harm self or others. Onset of symptoms was September 24, 2024. Care prior to arrival: Medication(s) given: baclofen 10 mg tab. 02:40 Method Of Arrival: Ambulatory rg5 02:40 Acuity: TRAV 4 rg5 Triage Assessment: 02:40 General: Appears uncomfortable, Behavior is calm, cooperative, appropriate for age. rg5 Pain: Complains of pain in left trapezius and thoracic area Pain currently is 10 out of 10 on a pain scale. Quality of pain is described as aching, Pain began 4 hours ago. EENT: No signs and/or symptoms were reported regarding the EENT system. Neuro: Level of Consciousness is awake, alert, obeys commands, Oriented to person, place, time, situation. Cardiovascular: Patient's skin is warm and dry. Respiratory: Airway is patent Trachea midline Respiratory effort is even, unlabored, Respiratory pattern is regular, symmetrical. GI: Abdomen is round non-distended. : No signs and/or symptoms were reported regarding the genitourinary system. Derm: Skin is intact, Skin is dry, Skin is normal, Skin temperature is warm. Musculoskeletal: Circulation, motion, and sensation intact. Range of motion: intact in all extremities. 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 - Infectious Disease History:: Denies. - Social history:: Smoking status: Patient denies any tobacco usage or history of. Screenin:14 [facility] ED Fall Risk Assessment (Adult) History of falling in the last 3 months, rg5 including since admission No falls in past 3 months (0 pts) Confusion or Disorientation No (0 pts) Intoxicated or Sedated No (0 pts) Impaired Gait No (0 pts) Mobility Assist Device Used No (0 pt) Altered Elimination No (0 pt) Score/Fall Risk Level 0 - 2 = Low Risk Oriented to surroundings, Maintained a safe environment, Hourly rounding (assess needs \T\ fall precautionary measures) done. Abuse screen: Denies threats or abuse. Nutritional screening: No deficits noted. Tuberculosis screening: No symptoms or risk factors identified. Assessment: 03:14 General: Appears in no apparent distress. Behavior is calm, cooperative, appropriate rg5 for age. Pain: Complains of pain in left trapezius. Neuro: Level of Consciousness is awake, alert, obeys commands, Oriented to person, place, time. 03:48 Reassessment: No changes from previously documented assessment. Patient and/or family rg5 updated on plan of care and expected duration. Pain level reassessed. 04:25 Reassessment: Patient and/or family updated on plan of care and expected duration. Pain rg5 level reassessed. Patient is alert, oriented x 3, equal unlabored respirations, skin warm/dry/pink. Patient states feeling better. Patient states symptoms have improved. Vital Signs: 02:40 BP 116 / 83; Pulse 87; Resp 18; Temp 98; Pulse Ox 99% on R/A; Weight 68.04 kg; Height 5 rg5 ft. 4 in. ; Pain 10/10; 03:47 BP 114 / 71; Pulse 88; Resp 19; Pulse Ox 99% on R/A; Pain 8/10; rg5 04:25 BP 126 / 73; Pulse 81; Resp 17; Pulse Ox 99% on R/A; Pain 2/10; rg5 02:40 Body Mass Index 25.75 (68.04 kg, 162.56 cm) rg5 02:40 Pain Scale: Adult rg5 03:47 Pain Scale: Adult rg5 04:25 Pain Scale: Adult rg5 ED Course: 02:39 Patient arrived in ED. jj6 02:40 Levy Clemente MD is Attending Physician. ec2 02:40 Arm band placed on. rg5 02:41 Indra Sánchez, RN is Primary Nurse. rg5 02:55 Triage completed. rg5 03:03 Inserted saline lock: 20 gauge in right antecubital area, using aseptic technique. af3 Flushed with 10 mL NS. 03:14 Patient has correct armband on for positive identification. Bed in low position. Call rg5 light in reach. Side rails up X 1. 03:14 No provider procedures requiring assistance completed. rg5 04:25 IV discontinued, No redness/swelling at site. Pressure dressing applied. rg5 05:10 Provided Education on: post er care. rg5 Administered Medications: 03:01 Drug: Lidoderm Topical Patch 5 % (700 mg/patch) 1 patches Topical once; leave on for 12 rg5 hours; cover most painful area; may cut into smaller pieces Route: Topical; Site: affected area; 03:05 Drug: Ketorolac IVP 15 mg IVP once Route: IVP; Site: right antecubital; rg5 03:47 Follow up: Response: No adverse reaction rg5 03:05 Drug: Diazepam IVP 5 mg IVP once Route: IVP; Site: right antecubital; rg5 03:47 Follow up: Response: No adverse reaction rg5 03:47 Drug: Cyclobenzaprine PO 10 mg PO once Route: PO; rg5 04:24 Follow up: Response: No adverse reaction; Pain is decreased rg5 Medication: 03:14 VIS not applicable for this client. rg5 Outcome: 04:33 Discharge ordered by . ec2 05:10 Discharged to home ambulatory, rg5 05:10 Condition: stable 05:10 Instructed on discharge instructions, follow up and referral plans. Demonstrated understanding of instructions, follow-up care, medications, Prescriptions given X 2, 05:11 Patient left the ED. rg5 Signatures: Rocio Mccrary jj6 Levy Clemente MD MD ec2 Indra Sánchez, RN RN rg5 Janine Hernandez af3
--- NOTE | 2024-09-24 04:34 | EDPHYS ---
Physician Documentation [facility] Name: Rosamaria Castillo Age: 49 yrs Sex: Female : 1975 Arrival Date: 09/24/2024 Time: 02:37 Bed 18 Private MD: ED Physician Levy Clemente HPI: 09/24 02:56 This 49 yrs old Female presents to ER via Ambulatory with complaints of Neck ec2 and Upper Back Pain, Back Pain. 02:56 Patient arrives today for evaluation of left neck pain. Patient complains of left neck ec2 and mid back pain. No falls injuries or trauma. Had reportedly lifted a heavy object and subsequently started having pain afterwards. Patient reports no falls injuries or trauma.. 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 - Infectious Disease History:: Denies. - Social history:: Smoking status: Patient denies any tobacco usage or history of. ROS: 02:56 Constitutional: as per hpi ec2 Exam: 02:56 Constitutional: GEN: NAD Head: atraumatic Eyes: EOMI Ears: External ears are ec2 normal. CV: regular rate LUNGS: no respiratory distress ABD: non-distended SKIN: no evidence of rashes MSK: no evidence of trauma, reproducible left trapezius tenderness to palpation Vital Signs: 02:40 BP 116 / 83; Pulse 87; Resp 18; Temp 98; Pulse Ox 99% on R/A; Weight 68.04 kg; Height 5 rg5 ft. 4 in. ; Pain 10/10; 03:47 BP 114 / 71; Pulse 88; Resp 19; Pulse Ox 99% on R/A; Pain 8/10; rg5 04:25 BP 126 / 73; Pulse 81; Resp 17; Pulse Ox 99% on R/A; Pain 2/10; rg5 02:40 Body Mass Index 25.75 (68.04 kg, 162.56 cm) rg5 02:40 Pain Scale: Adult rg5 03:47 Pain Scale: Adult rg5 04:25 Pain Scale: Adult rg5 MDM: 02:41 Medical Screening Exam initiated ec2 02:56 Data reviewed: vital signs, nurses notes. ED course: Patient arrives today for ec2 evaluation of left neck and back pain. Examination yields MSK findings as above. Will give the patient Toradol, Valium, Lidoderm patch. Suspect muscular spasm. Doubt fracture or dislocation given lack of associated mechanism.. 04:33 ED course: On reassessment patient with improvement in symptoms, sleeping comfortably. ec2 Will discharge home with patient with referral Flexeril and have the patient follow-up PCP. Suspect muscular spasm. Doubt C-spine fracture given lack of mechanism, doubt clavicle fracture.. 09/24 02:52 Order name: IV; Complete Time: 03:03 ec2 Administered Medications: 03:01 Drug: Lidoderm Topical Patch 5 % (700 mg/patch) 1 patches Topical once; leave on for 12 rg5 hours; cover most painful area; may cut into smaller pieces Route: Topical; Site: affected area; 03:05 Drug: Ketorolac IVP 15 mg IVP once Route: IVP; Site: right antecubital; rg5 03:47 Follow up: Response: No adverse reaction rg5 03:05 Drug: Diazepam IVP 5 mg IVP once Route: IVP; Site: right antecubital; rg5 03:47 Follow up: Response: No adverse reaction rg5 03:47 Drug: Cyclobenzaprine PO 10 mg PO once Route: PO; rg5 04:24 Follow up: Response: No adverse reaction; Pain is decreased rg5 Disposition Summary: 09/24/24 04:33 Discharge Ordered Notes: Location: Home ec2 Condition: Stable ec2 Diagnosis - Muscle spasm of back ec2 Followup: ec2 - With: Private Physician - When: - Reason: Re-evaluation by your physician Discharge Instructions: - Discharge Summary Sheet ec2 - Muscle Cramps and Spasms ec2 Forms: - Medication Reconciliation Form ec2 - Antibiotic Education ec2 - Prescription Opioid Use ec2 - Patient Portal Instructions ec2 - Leadership Thank You Letter ec2 Prescriptions: - Cyclobenzaprine 10 mg Oral Tablet - take 1 tablet ORAL route every 8 hours As needed; 30 tablet; Refills: 0, ec2 Product Selection Permitted Signatures: Levy Clemente MD MD ec2 Indra Sánchez RN RN rg5
[2024-09-24 05:15] VITALS: TEMP 98; O2SAT 99
[2024-09-24 05:18] VITALS: BP 126/73
== END 2024-09-24 05:11 | disposition home or self-care (01) ==
LOC: ER 02:37
DX: M62.830 Muscle spasm of back (principal); M54.2 Cervicalgia
CPT/HCPCS: 96375; 96374; 99284; J2003; J3360